=== PATIENT | female | born 1935 | race Caucasian/White ===

== ENCOUNTER 2017-03-18 01:58 | Inpatient (IN) | payer MEDICARE, OTHER ==
[~2017-03-18] VITALS: Ht 162.6 cm; Wt 56.2 kg
[~2017-03-18 01:58] MED LIST: ACET160T6 PO; ANAS1TAB PO; CLON0.1T PO; DIGO50SO2 PO; LETR2.5T PO; LEVO125T PO; LORA-258 PO; LOSA1TAB9 PO; LOSA50TA3 PO; MEPE50TA2 PO; METO25TA20 PO; PANT20TA2 PO; PRED10TA PO; TRAM50TA2 PO; TRAM50TA92 PO; WARF1TAB47 PO; ZOLP5TAB2 PO
--- NOTE | 2017-03-18 02:00 | NUR ---
PT BIB [facility] TO ER BED 5, PT C/O ABDOMINAL PAIN AND BLACK STOOLS X 1 DAY. PT PLACED IN GOWN AND VS/DENTAL ASSISTANT INSTRUCTOR. MD CURRIE AT BEDSIDE. TECH AT BEDSIDE FOR EKG. PT VSS/RESP EVEN UNLABORED/NAD NOTED/SKIN WARM AND DRY/AOX4. PT IS C/O NAUSEA, DENIES VOMITING.
--- NOTE | 2017-03-18 02:20 | NUR ---
18G IV TO L AC USING ASEPTIC TECH, BLOOD SAMPLE HANDED OVER TO LAB AT BEDSIDE. IV FLUSHES EASILY WITH NS.
[2017-03-18] MEDS ORDERED: ONDANSETRON HCL/PF 4 MG/2 ML VIAL ONE (02:27)
[2017-03-18] MEDS ORDERED: ONDANSETRON HCL/PF 4 MG/2 ML VIAL IV ONE (02:30)
[2017-03-18] MEDS ORDERED: IV NS 0.9% 1,000 ML BAG IV ONE ×2 (02:30→03:30)
--- NOTE | 2017-03-18 02:30 | NUR ---
16 FR F/C IN PLACE USING ASSISTANT ACCOUNT EXECUTIVE, URINE SPECIMEN OBTAINED AND SENT TO LAB. PT TOLERATED PROCEDURE WELL.
[2017-03-18 02:34] LABS: BASOPHILS % (AUTO) 0.2 % (0.0-2.0); HEMATOCRIT 31 % (33-45); HEMOGLOBIN 9.9 g/dL (11.5-14.8); LYMPHOCYTES # (AUTO) 2.1 /CMM (0.8-4.8); LYMPHOCYTES % (AUTO) 16.8 % (20.0-44.0); MEAN CORPUSCULAR HEMOGLOBIN 30 PG (26.0-33.0); MEAN CORPUSCULAR HGB CONC 32 g/dl (31.0-36.0); MEAN CORPUSCULAR VOLUME 93 fL (82-100); MONOCYTES # (AUTO) 0.7 /CMM (0.1-1.30); MONOCYTES % (AUTO) 5.1 % (2.0-12.0); NEUTROPHILS # (AUTO) 9.9 /CMM (1.8-8.9); NEUTROPHILS % (AUTO) 77.9 % (43.0-81.0); PLATELET COUNT (AUTO) 195 /CMM (150-450); RDW COEFFICIENT OF VARIATION 15.6 (11.5-15.0); RED BLOOD CELL COUNT(AUTO) 3.29 MIL/uL (4.0-5.2); WHITE BLOOD COUNT (AUTO) 12.8 K/uL (4.3-11.0)
--- NOTE | 2017-03-18 02:40 | NUR ---
XRAY AT BEDSIDE.
[2017-03-18 02:44] LABS: INR 1.08 (0.87-1.13); PROTHROMBIN TIME 11.2 SECS (9.5-12.7)
[2017-03-18 02:44] LABS: APPEARANCE,URINE CLEAR (CLEAR); BILIRUBIN,URINE NEGATIVE (NEGATIVE); BLOOD, URINE NEGATIVE Ery/uL (NEGATIVE); COLOR,URINE YELLOW (YELLOW); KETONES,URINE NEGATIVE (NEGATIVE); LEUKOCYTE ESTERASE ,URINE NEGATIVE (NEGATIVE); NITRITE, URINE NEGATIVE (NEGATIVE); PROTEIN,URINE NEGATIVE (NEGATIVE); UGLUCOSE NEGATIVE (NEGATIVE); UROBILINOGEN,URINE 0.2 EU/dL (0.2)
[2017-03-18 02:47] LABS: ALANINE AMINOTRANSFERASE 31 U/L (12-78); ALBUMIN 3.4 g/dL (3.4-5.0); ALKALINE PHOSPHATASE 36 U/L (46-116); ASPARTATE AMINOTRANSFERASE 19 U/L (15-37); BILIRUBIN,DIRECT 0.1 mg/dL (0.0-0.2); BILIRUBIN,TOTAL 0.5 mg/dL (0.2-1.0); CALCIUM, SERUM 9.6 mg/dL (8.5-10.1); CARBON DIOXIDE 23 mmol/L (21-32); CHLORIDE 104 mmol/L (98-107); CREATININE 2.3 mg/dL (0.6-1.3); GLUCOSE 157 mg/dL (74-106); SODIUM SERUM 143 mmol/L (136-145); TOTAL PROTEIN, SERUM 6.5 g/dL (6.4-8.2)
[2017-03-18 02:49] LABS: TROPONIN I 0.033 ng/mL (0.00-0.056)
[2017-03-18 02:51] LABS: UREA NITROGEN, BLOOD 104 mg/dL (7-18)
--- NOTE | 2017-03-18 03:04 | NUR ---
PT TO CT VIA STRETCHER, VSS.
[2017-03-18] MEDS ORDERED: IV NS 0.9% 250 ML IV ONE (03:06)
[2017-03-18] MEDS ORDERED: IOHEXOL-350 100 ML VIAL IV ONE (03:06)
--- NOTE | 2017-03-18 03:38 | NUR ---
PT BACK FROM CT.
[2017-03-18] MEDS ORDERED: ASPI-605 PO (03:53)
[2017-03-18] MEDS ORDERED: CYAN10009 PO (03:53)
[2017-03-18] MEDS ORDERED: ROSU10TA PO (03:53)
[2017-03-18] MEDS ORDERED: LEVO137T24 PO (03:53)
[2017-03-18] MEDS ORDERED: TORS20TA PO (03:53)
[2017-03-18] MEDS ORDERED: POTA-10 PO (03:53)
[2017-03-18] MEDS ORDERED: SILD50TA PO (03:53)
[2017-03-18] MEDS ORDERED: SEVE800T8 PO (03:53)
[2017-03-18] MEDS ORDERED: APIX2.5T PO (03:53)
[2017-03-18] MEDS ORDERED: PARI1CAP PO (03:53)
[2017-03-18] MEDS ORDERED: CARV6.25 PO (03:53)
[2017-03-18] MEDS ORDERED: VITA400C68 PO (03:53)
[2017-03-18] MEDS ORDERED: FLEC50TA3 PO (03:53)
[2017-03-18] MEDS ORDERED: CHOL100044 PO (03:53)
--- NOTE | 2017-03-18 03:57 | NUR ---
LAB AT BEDSIDE.
[2017-03-18] MEDS ORDERED: PANTOPRAZOLE 80 MG in IV NS 0.9% 500 ML IV ONE (04:00)
[2017-03-18] MEDS ORDERED: PANTOPRAZOLE 40 MG VIAL ONE (04:11)
--- NOTE | 2017-03-18 04:40 | NUR ---
PAGED [employer] FOR PANEL CALL
[2017-03-18] MEDS ORDERED: PIPERACILLIN /TAZOBACTAM 3.375 G VIAL IV ONE (05:18)
[2017-03-18] MEDS ORDERED: PIPERACILLIN /TAZOBACTAM 3.375 G in IV D5W 50 ML IV ONE (05:30)
--- NOTE | 2017-03-18 05:37 | NUR ---
PT BEING ADMIT TO TELE ROOM 322 BED 1.
--- NOTE | 2017-03-18 05:44 | NUR ---
REPORT GIVEN TO BEBETO BLEDSOE TELE FOR TASHIA.
[2017-03-18 05:50] VITALS: BP 146/67
--- NOTE | 2017-03-18 05:50 | NUR ---
TELE/RN NOTES RECEIVED PT. FROM ER VIA [facility]. PT. IS AWAKE, ALERT AND ORIENTED X4. BREATHING EVEN AND UNLABORED ON ROOM AIR. NO SOB, RESPIRATORY DISTRESS OR COMPLAINTS OF PAIN NOTED AT THIS TIME. ORIENTED PT. TO ROOM. PLACED EXTERNAL TEAM LEADER SURGERY ON PT. CURRENT RHYTHM = SINUS TACH WITH BBB HR 110. PT. WITH LEFT AC 18 GAUGE PERIPHERAL IV PRESENT, PATENT AND INTACT ADMINISTERING TO PT. PROTONIX @ 51.99 ML/HR. BED LOCKED AND IN LOWEST POSITION, SIDE RAILS UP X3, CALL LIGHT WITHIN REACH. AWAITING ADMITTING ORDERS. WILL CONTINUE TO MONITOR.
--- NOTE | 2017-03-18 06:03 | NUR ---
PT TRANSFER TO TELE BED 322 BED 1 VIA STRETCHER WITH RN, ACLS PROTOCOL.
[2017-03-18] MEDS ORDERED: PRAV20TA PO (06:25)
[2017-03-18] MEDS ORDERED: CALC500T71 PO (06:25)
[2017-03-18] MEDS ORDERED: DICL100G3 TP (06:25)
--- NOTE | 2017-03-18 06:50 | NUR ---
TELE/RN NOTES PT. IS LYING IN BED AWAKE, ALERT AND ORIENTED X4. BREATHING EVEN AND UNLABORED ON ROOM AIR. NO SOB, RESPIRATORY DISTRESS OR COMPLAINTS OF PAIN NOTED AT THIS TIME. ORIENTED PT. TO ROOM. PT. WITH LEFT AC 18 GAUGE PERIPHERAL IV PRESENT, PATENT AND INTACT ADMINISTERING TO PT. PROTONIX @ 51.99 ML/HR. ALL PT. NEEDS MET. BED LOCKED AND IN LOWEST POSITION, SIDE RAILS UP X3, CALL LIGHT WITHIN REACH. STILL AWAITING ADMITTING ORDERS. WILL ENDORSE TO DAYSHIFT NURSE FOR ADMISSION AND CONTINUITY OF CARE.
[2017-03-18 08:00] VITALS: BP 151/81
--- NOTE | 2017-03-18 08:16 | NUR ---
RECEIVED PATIENT IN BED, AWAKE, ALERT AND ORIENTED X 4, ABLE TO MAKE NEEDS KNOWN, NOTED WITH NO SOB, BREATHING EVEN AND UNLABORED, NO COMPLAINT OF PAIN AT THIS TIME, NOTED WITH NO SIGNS AND SYMPTOMS OF ACUTE DISTRESS. PATIENT WITH IV LINE ON LAC, G18, PATENT, INFUSING WELL WITH PROTONIX @ 561.99 Addendum: 03/18/17 at 0821 by BRIGETTE DAWKINS RN CORRECTION : PROTONIX @ 51.99 ML/HR. PLACED CALL LIGHT WITHIN REACH. WILL CONTINUE TO MONITOR. AWAITING FOR ORDERS.
[2017-03-18] MEDS ORDERED: IV D5/ 0.9% NACL 1,000 ML IV PRN (10:30)
[2017-03-18] MEDS ORDERED: Z GUARD REMEDY 2 OZ OINT TP PRN (11:30)
[2017-03-18] MEDS ORDERED: Medication Not On Formulary EA (Rosuvastatin Calcium (Crestor) 1 TAB) PO SCH (11:30)
--- NOTE | 2017-03-18 11:37 | NUR ---
RN MS NOTES PER DR. THAKUR, PT NPO BUT OK TO TAKE MEDS BY MOUTH.
[2017-03-18] MEDS: LORAZEPAM INJ 2 MG/ML VIAL IV PRN (11:46)
[2017-03-18] MEDS: CARVEDILOL 6.25 MG TABLET PO SCH ×2 (12:57→17:32)
[2017-03-18] MEDS: LEVOTHYROXINE SODIUM 75 MCG TABLET PO SCH (12:57)
[2017-03-18] MEDS: SEVELAMER CARBONATE 800 MG TABLET PO SCH ×2 (12:57→17:33)
--- NOTE | 2017-03-18 13:00 | NUR ---
RN MS NOTES PT REFUSING BLOOD DRAW, LAB UNABLE TO DRAW BLOOD, ORDER GIVEN FOR MIDLINE INSERTION, PT INFORMED AND AGREED WITH PLAN.
[2017-03-18] MEDS: ATORVASTATIN 10 MG TABLET PO SCH (13:12)
[2017-03-18] MEDS: IV D5/ 0.9% NACL 1,000 ML IV PRN (15:26)
[2017-03-18 16:00] VITALS: BP 131/61
[2017-03-18] MEDS: CHOLECALCIFEROL 1,000 UNIT TABLET (VIT D3) PO SCH (17:33)
[2017-03-18] MEDS: CALCIUM CARBONATE (1250) 500 MG TABLET PO SCH (17:33)
[2017-03-18] MEDS: SILDENAFIL CITRATE 20 MG TABLET PO SCH (17:33)
[2017-03-18 18:06] LABS: BASOPHILS % (AUTO) 0.5 % (0.0-2.0); EOSINOPHILS # (AUTO) 0.1 /CMM (0.0-0.7); EOSINOPHILS % (AUTO) 0.8 % (0.0-6.0); LYMPHOCYTES # (AUTO) 0.9 /CMM (0.8-4.8); LYMPHOCYTES % (AUTO) 12.8 % (20.0-44.0); MEAN CORPUSCULAR HEMOGLOBIN 30 PG (26.0-33.0); MEAN CORPUSCULAR HGB CONC 33 g/dl (31.0-36.0); MEAN CORPUSCULAR VOLUME 91 fL (82-100); MONOCYTES # (AUTO) 0.6 /CMM (0.1-1.30); MONOCYTES % (AUTO) 8.2 % (2.0-12.0); NEUTROPHILS # (AUTO) 5.7 /CMM (1.8-8.9); NEUTROPHILS % (AUTO) 77.7 % (43.0-81.0); PLATELET COUNT (AUTO) 148 /CMM (150-450); RDW COEFFICIENT OF VARIATION 16.6 (11.5-15.0); RED BLOOD CELL COUNT(AUTO) 2.14 MIL/uL (4.0-5.2); WHITE BLOOD COUNT (AUTO) 7.3 K/uL (4.3-11.0)
[2017-03-18 18:17] LABS: HEMATOCRIT 20 % (33-45)
[2017-03-18 18:20] LABS: HEMOGLOBIN 6.5 g/dL (11.5-14.8)
--- NOTE | 2017-03-18 18:30 | NUR ---
MICHELLE MS NOTES RECEIVED LATEST HGB RESULT FROM LAB, 6.5, DR. PERRIN INFORMED, ORDERED TO TRANSFUSE 2 UNITS PRBC, NOTED AND CARRIED OUT, PROCEDURE EXPLAINED TO PT, VERBALIZED UNDERSTANDING, CONSENT SIGNED.
--- NOTE | 2017-03-18 18:52 | NUR ---
RN CLOSING NOTES PATIENT UP IN BED, REMAINS TO BE NPO, ALERT AND ORIENTED X 4, ABLE TO VERBALIZE NEEDS, NO SOB, BREATHING EVEN AND UNLABORED, DENIES PAIN, NO COMPLAINT OF DIZZINESS, NO CHANGES IN MENTATION. SAFETY PRECAUTIONS IN PLACE, KEPT BED IN LOW POSITION AND LOCKED IN PLACE. CALL LIGHT PLACED WITHIN EASY REACH.
[2017-03-18 19:20] LABS: BAND % (MANUAL) 1 % (0.0-5.0); BASOPHILS % (MANUAL) 0 % (0.0-2.0); EOSINOPHILS % (MANUAL) 1 % (0-4); LYMPHOCYTES % (MANUAL) 13 % (16-48); MONOCYTES % (MANUAL) 5 % (0-11.0); NEUTROPHILS % (MANUAL) 80 (42-76)
--- NOTE | 2017-03-18 19:25 | NUR ---
MS/RN NOTES RECEIVED PT. LYING IN BED. AWAKE, ALERT AND ORIENTED X4. BREATHING EVEN AND UNLABORED ON ROOM AIR. NO SOB, RESPIRATORY DISTRESS OR COMPLAINTS OF PAIN NOTED AT THIS TIME. PT. WITH LEFT AC 18 GAUGE IV SALINE LOCK PRESENT, PATENT AND INTACT. PT. WITH RIGHT UPPER ARM MIDLINE PRESENT, PATENT AND INTACT ADMINISTERING TO PT. PROTONIX @ 51.99ML/HR AND NS @ 75 ML/HR. PT. REMAINS NPO EXCEPT MEDICATIONS. PER DAYSHIFT NURSE PT. HAD 3 BM'S TODAY AND CONTINUES TO HAVE BLACK TARRY STOOLS. PT. WITH CAMACHO CATHETER PRESENT, PATENT AND INTACT DRAINING CLEAR YELLOW URINE. PER DAYSHIFT NURSE PT. HAS BLOOD TRANSFUSION ORDERED, CONSENT SIGNED AND PLACED IN CHART, AWAITING TYPE AND SCREEN RESULTS FROM LAB. WILL ADMINISTER TO PT. BLOOD TRANSFUSION ORDERED ONCE BLOOD IS AVAILABLE. BED LOCKED AND IN LOWEST POSITION, SIDE RAILS UP X3, BED ALARM ON, CALL LIGHT WITHIN REACH, WILL CONTINUE TO MONITOR.
[2017-03-18 19:32] LABS: TROPONIN I 0.061 ng/mL (0.00-0.056)
[2017-03-18 19:43] LABS: THYROID STIMULATING HORMONE 0.998 uIU/mL (0.358-3.74)
[2017-03-18 20:00] VITALS: BP 143/62
--- NOTE | 2017-03-18 21:02 | NUR ---
MS/RN NOTES NOTIFIED EPIC EPIC PROFESSIONAL DR. LOVE PT. IS COMPLAINING OF PAIN 5-6/10 IN HER HEAD AND BACK. PT. HAS NO PAIN MEDICATION ORDERED. PER DR. OLVE NEW ORDER: MORPHINE 2MG IV Q4HR PRN PAIN. WILL CARRY OUR ORDERS. WILL CONTINUE TO MONITOR.
[2017-03-18 21:09] LABS: MAGNESIUM 2.2 mg/dL (1.8-2.4); PHOSPHORUS 2.9 mg/dL (2.5-4.9)
[2017-03-18] MEDS ORDERED: MORPHINE SULFATE INJ 10 MG/ML DISP.SYRIN IV PRN (21:30)
[2017-03-18] MEDS ORDERED: MORPHINE SULFATE INJ 4 MG/ML DISP.SYRIN IV PRN (21:30)
[2017-03-18] MEDS ORDERED: MORPHINE SULFATE INJ 2 MG/ML DISP.SYRIN IV PRN (21:30)
[2017-03-18] MEDS ORDERED: MORPHINE SULFATE INJ 10 MG/ML DISP.SYRIN ONE (21:31)
--- NOTE | 2017-03-18 21:43 | NUR ---
MS/RN NOTES PER CHARGE NURSE MORPHINE 2MG VIAL AND MORPHINE 4MG VIAL UNAVAILABLE ON THE UNIT. ORDER CHANGED TO MORPHINE 10 MG VIAL, ORDERED DOSE: 2MG, 8MG MORPHINE WAS WASTED. ADMINISTERED TO PT. MORPHINE 2MG IV PRN SEVERE PAIN. PT. VITAL SIGNS STABLE. WILL CONTINUE TO MONITOR.
[2017-03-18 22:50] VITALS: BP 107/43
--- NOTE | 2017-03-18 22:51 | NUR ---
MS/RN NOTES PT. VITAL SIGNS STABLE. 1 UNIT PRBC BLOOD TRANSFUSION STARTED. WILL CONTINUE TO MONITOR.
[2017-03-18 23:06] VITALS: BP 109/47
[2017-03-19] VITALS (9 sets, daily range): BP systolic 117–155; BP diastolic 57–88
--- NOTE | 2017-03-19 01:41 | NUR ---
MS/RN NOTES 1 UNIT PRBC'S TRANSFUSED. PT. VITAL SIGNS STABLE. PT. TOLERATED BLOOD TRANSFUSION WELL. NO ADVERSE REACTIONS NOTED. WILL CONTINUE TO MONITOR.
[2017-03-19 03:22] LABS: HEMOGLOBIN 7.8 g/dL (11.5-14.8)
--- NOTE | 2017-03-19 04:15 | NUR ---
MS/RN NOTES NOTIFIED EPIC WALLPAPER INSPECTOR AND SHIPPER DR. LOVE PT. RECEIVED 1 UNIT PRBC'S. POST TRANSFUSION H/H IS 7.8/24. PER DR. LOVE NEW ORDER: 1 UNIT PRBC. WILL CARRY OUT ORDER. WILL CONTINUE TO MONITOR.
--- NOTE | 2017-03-19 06:15 | NUR ---
MS/RN NOTES 1 UNIT PRBC BLOOD TRANSFUSION STARTED ORDERED. PT. VITAL SIGNS STABLE. WILL CONTINUE TO MONITOR.
--- NOTE | 2017-03-19 06:48 | NUR ---
MS/RN NOTES PT. IS LYING IN BED. AWAKE, ALERT AND ORIENTED X4. BREATHING EVEN AND UNLABORED ON ROOM AIR. NO SOB, RESPIRATORY DISTRESS OR COMPLAINTS OF PAIN NOTED AT THIS TIME. PT. WITH LEFT AC 18 GAUGE IV SALINE LOCK PRESENT, PATENT AND INTACT. PT. WITH RIGHT UPPER ARM MIDLINE PRESENT, PATENT AND INTACT ADMINISTERING TO PT. 1 UNIT PRBC BLOOD TRANSFUSION. PT. REMAINS NPO EXCEPT MEDICATIONS. PT. WITH CAMACHO CATHETER PRESENT, PATENT AND INTACT. EMPTIED 1000 ML CLEAR YELLOW URINE. ALL PT. NEEDS MET. PT. ENCOURAGED AND ASSISTED TO TURN AND REPOSITION Q2H AND NEEDED. BED LOCKED AND IN LOWEST POSITION, SIDE RAILS UP X3, BED ALARM ON, CALL LIGHT WITHIN REACH, WILL ENDORSE TO DAYSHIFT NURSE FOR CONTINUITY OF CARE.
--- NOTE | 2017-03-19 07:30 | NUR ---
MS RN NOTES RECEIVED PATIENT IN BED, AWAKE. A/O X3, APPEARS ANXIOUS. ON ROOM AIR, TOLERATING WELL, NO SOB. BLOOD TRANSFUSION 2ND UNIT PRBC CURRENTLY INFUSING WITH NO EVIDENCE OF ADVERSE SIDE EFFECT. PATIENT IS ON NPO EXCEPT MEDS ORDERED. CALL LIGHT WITHIN REACH. WILL CONT TO MONITOR.
--- NOTE | 2017-03-19 07:46 | NUR ---
BLOOD TRANSFUSION IN PROGRESS, PATIENT APPEARS COMFORTABLE IN BED, DENIES ANY DISCOMFORT. AFEBRILE, ON ROOM AIR, NO SOB, DENIES CHEST PAIN.
[2017-03-19] MEDS: SILDENAFIL CITRATE 20 MG TABLET PO SCH ×2 (08:49→17:22)
[2017-03-19] MEDS: CARVEDILOL 6.25 MG TABLET PO SCH ×2 (08:50→17:19)
[2017-03-19] MEDS: LEVOTHYROXINE SODIUM 75 MCG TABLET PO SCH (08:50)
[2017-03-19] MEDS: ATORVASTATIN 10 MG TABLET PO SCH (08:51)
[2017-03-19] MEDS ORDERED: HYDROMORPHONE INJ 2 MG/ML DISP.SYRIN IV PRN (09:00)
--- NOTE | 2017-03-19 09:12 | NUR ---
POST BLOOD TRANSFUSION PRBC 2ND UNIT, WITH NO ADVERSE SIDE EFFECT, VS REMAINS STABLE. PATIENT DENIES CHEST PAIN OR ANY DISCOMFORT. WILL CONT TO MONITOR.
--- NOTE | 2017-03-19 09:59 | NUR ---
NO AM LABS TODAY, DR. MCDANIEL ORDERED CHEM 12 AND CBC, NOTED AND ACKNOWLEDGED.
[2017-03-19] MEDS: FLECAINIDE ACETATE (100 MG) 100 MG TABLET PO SCH ×2 (10:12→21:32)
[2017-03-19 11:03] LABS: BASOPHILS # (AUTO) 0.1 /CMM (0.0-0.2); EOSINOPHILS # (AUTO) 0.1 /CMM (0.0-0.7); EOSINOPHILS % (AUTO) 1.6 % (0.0-6.0); HEMATOCRIT 29 % (33-45); HEMOGLOBIN 9.4 g/dL (11.5-14.8); LYMPHOCYTES # (AUTO) 0.7 /CMM (0.8-4.8); LYMPHOCYTES % (AUTO) 10.6 % (20.0-44.0); MEAN CORPUSCULAR HEMOGLOBIN 30 PG (26.0-33.0); MEAN CORPUSCULAR HGB CONC 33 g/dl (31.0-36.0); MEAN CORPUSCULAR VOLUME 92 fL (82-100); MONOCYTES # (AUTO) 0.4 /CMM (0.1-1.30); MONOCYTES % (AUTO) 5.9 % (2.0-12.0); NEUTROPHILS # (AUTO) 5.1 /CMM (1.8-8.9); NEUTROPHILS % (AUTO) 80.9 % (43.0-81.0); PLATELET COUNT (AUTO) 121 /CMM (150-450); RDW COEFFICIENT OF VARIATION 15.1 (11.5-15.0); RED BLOOD CELL COUNT(AUTO) 3.14 MIL/uL (4.0-5.2); WHITE BLOOD COUNT (AUTO) 6.4 K/uL (4.3-11.0)
[2017-03-19 11:16] LABS: ALANINE AMINOTRANSFERASE 23 U/L (12-78); ALBUMIN 2.9 g/dL (3.4-5.0); ALKALINE PHOSPHATASE 25 U/L (46-116); ASPARTATE AMINOTRANSFERASE 20 U/L (15-37); BILIRUBIN,TOTAL 0.5 mg/dL (0.2-1.0); CARBON DIOXIDE 25 mmol/L (21-32); CHLORIDE 121 mmol/L (98-107); CREATININE 1.7 mg/dL (0.6-1.3); GLUCOSE 122 mg/dL (74-106); MAGNESIUM 2.5 mg/dL (1.8-2.4); PHOSPHORUS 2.7 mg/dL (2.5-4.9); POTASSIUM 3.4 mmol/L (3.5-5.1); SODIUM SERUM 155 mmol/L (136-145); TOTAL PROTEIN, SERUM 5.2 g/dL (6.4-8.2); UREA NITROGEN, BLOOD 53 mg/dL (7-18)
[2017-03-19 11:23] LABS: IRON, SERUM 87 ug/dl (50-175); TOTAL IRON BINDING CAPACITY 288 ug/dl (250-450)
[2017-03-19 11:27] LABS: FERRITIN 97 ng/mL (8-388); THYROID STIMULATING HORMONE 1.602 uIU/mL (0.358-3.74)
--- NOTE | 2017-03-19 11:48 | NUR ---
PATIENT CONSENTED THE PROCEDURE-EGD, MANUEL, SON WAS AWARE. PATIENT IS TAKEN TO OR FOR EGD BY DR. LAWTON.
--- NOTE | 2017-03-19 13:30 | NUR ---
PATIENT IS BACK FROM OR, POST EGD PROCEDURE. PATIENT RECEIVING IVF NS AT 100ML/HR, 1L BAG HANG FROM OR. WILL START CLEAR LIQUIDS ORDERED PER DR. HA.
[2017-03-19] MEDS: SEVELAMER CARBONATE 0.8 GM POWD.PACK PO SCH ×2 (13:52→17:19)
[2017-03-19] MEDS: LORAZEPAM INJ 2 MG/ML VIAL IV PRN ×2 (13:54→20:04)
--- NOTE | 2017-03-19 13:57 | NUR ---
PATIENT APPEARS ANXIOUS, DENIES CHEST PAIN. ON ROOM AIR, TOLERATING WELL, NO SOB. SATING 98%. GIVEN ATIVAN 1MG IVP PRN, WILL REASSESS. MANUEL, SON AT THE BEDSIDE.
--- NOTE | 2017-03-19 15:04 | NUR ---
LOW POTASSIUM LEVEL 3.4 AND ELEVATED SODIUM 155. NOTIFIED DR. MARYCHUY VO, ORDERED KCL 40MEQ IV NOTED AND ACKNOWLEDGED.
[2017-03-19] MEDS ORDERED: POTASSIUM CL. PREMIX PERIPHER. 50 ML IV SCH (15:30)
[2017-03-19] MEDS: IV D5/ 0.9% NACL 1,000 ML IV PRN (15:40)
[2017-03-19] MEDS: Potassium Chloride 10 MEQ in IV D5W 50 ML IV SCH ×4 (16:15→19:17)
[2017-03-19] MEDS: CALCIUM CARBONATE (1250) 500 MG TABLET PO SCH (17:19)
[2017-03-19] MEDS: CHOLECALCIFEROL 1,000 UNIT TABLET (VIT D3) PO SCH (17:20)
--- NOTE | 2017-03-19 18:00 | NUR ---
MS RN CLOSING NOTES PATIENT SITTING UP IN BED, EATING DINNER. ON CLEAR LIQUIDS DIET, TOLERATING WELL, NO EPISODE OF VOMITING, NO C/O NAUSEA. NICK MIDLINE PATENT AND INTACT, REPLACING POTASSIUM IV AT THIS TIME. CAMACHO CATH INTACT, DRAINING TO GRAVITY, NO C/O ANY DISCOMFORT. PATIENT HAD BOWEL MOVEMENT TODAY, MOD AMT GREENISH AND BLACK COLOR. POST EGD TODAY BY DR. HA. CONT HOSP. CALL LIGHT WITHIN REACH. WILL ENDORSE TO INSIDE HORTICULTURAL SPECIALTY GROWER RN FOR CONTINUITY OF CARE.
--- NOTE | 2017-03-19 19:35 | NUR ---
RN OPENING NOTES RECEIVED REPORT FROM ONEIL, PT RESTING IN BED. NO APPARENT S/S OF PAIN OR DISTRESS. NO COMPLAINTS OF SOB. CAMACHO CATHETER INTACT AND DRAINING WELL. R UA MIDLINE RUNNING D5 1/2NS @75ML/HR. PT TOLERATING IVF WELL. PATIENT IS ON NPO EXCEPT MEDS ORDERED. SAFETY PRECAUTIONS IN PLACE. BED IN LOW, LOCKED POSITION, 2XSIDERAILS UP AND CALL LIGHT WITHIN REACH. WILL CONTINUE TO MONITOR PT. Addendum: 03/20/17 at 0612 by JEOVANY CHOU RN PT IS ON CLEAR LIQUID DIET.
--- NOTE | 2017-03-19 20:04 | NUR ---
PT REQUESTED PRN ATIVAN 1MG FOR SLEEP. WILL ADMINISTER AND CONTINUE TO MONITOR.
[2017-03-20 06:34] LABS: BASOPHILS # (AUTO) 0.1 /CMM (0.0-0.2); BASOPHILS % (AUTO) 0.5 % (0.0-2.0); EOSINOPHILS # (AUTO) 0.3 /CMM (0.0-0.7); EOSINOPHILS % (AUTO) 2.4 % (0.0-6.0); HEMATOCRIT 30 % (33-45); HEMOGLOBIN 9.8 g/dL (11.5-14.8); LYMPHOCYTES # (AUTO) 0.8 /CMM (0.8-4.8); LYMPHOCYTES % (AUTO) 7.1 % (20.0-44.0); MEAN CORPUSCULAR HEMOGLOBIN 31 PG (26.0-33.0); MEAN CORPUSCULAR HGB CONC 33 g/dl (31.0-36.0); MEAN CORPUSCULAR VOLUME 93 fL (82-100); MONOCYTES # (AUTO) 0.8 /CMM (0.1-1.30); MONOCYTES % (AUTO) 6.6 % (2.0-12.0); NEUTROPHILS # (AUTO) 9.8 /CMM (1.8-8.9); NEUTROPHILS % (AUTO) 83.4 % (43.0-81.0); PLATELET COUNT (AUTO) 116 /CMM (150-450); RDW COEFFICIENT OF VARIATION 15.4 (11.5-15.0); RED BLOOD CELL COUNT(AUTO) 3.19 MIL/uL (4.0-5.2); WHITE BLOOD COUNT (AUTO) 11.8 K/uL (4.3-11.0)
[2017-03-20] MEDS: LEVOTHYROXINE SODIUM 75 MCG TABLET PO SCH (06:53)
[2017-03-20 06:57] LABS: CALCIUM, SERUM 7.3 mg/dL (8.5-10.1); CARBON DIOXIDE 23 mmol/L (21-32); CHLORIDE 117 mmol/L (98-107); CREATININE 1.5 mg/dL (0.6-1.3); GLUCOSE 121 mg/dL (74-106); MAGNESIUM 2.1 mg/dL (1.8-2.4); PHOSPHORUS 1.8 mg/dL (2.5-4.9); POTASSIUM 3.9 mmol/L (3.5-5.1); SODIUM SERUM 147 mmol/L (136-145); UREA NITROGEN, BLOOD 30 mg/dL (7-18)
--- NOTE | 2017-03-20 07:17 | NUR ---
RN CLOSING NOTES PT RESTING IN BED. NO APPARENT S/S OF PAIN OR DISTRESS. NO COMPLAINTS OF SOB. CAMACHO CATHETER INTACT AND DRAINING WELL. CAMACHO OUTPUT: 1200ML. RIGHT UA MIDLINE RUNNING D5 1/2NS @75ML/HR. PT TOLERATING IVF WELL. PATIENT IS ON CLEAR LIQUID DIET. SAFETY PRECAUTIONS IN PLACE. BED IN LOW, LOCKED POSITION, 2XSIDERAILS UP AND CALL LIGHT WITHIN REACH.
--- NOTE | 2017-03-20 07:30 | NUR ---
MS RN NOTES RECEIVED PATIENT IN BED, AWAKE. A/O X3, ON OXYGEN AT 2L NC, NO SOB. NICK MIDLINE PATENT AND INTACT, IV D5 NS INFUSING AT 75ML/HR. APPEARS CALM AND RELAX AT THIS TIME. CALL LIGHT WITHIN REACH. WILL CONT TO MONITOR.
[2017-03-20 08:00] VITALS: BP 130/52
[2017-03-20] MEDS: SEVELAMER CARBONATE 0.8 GM POWD.PACK PO SCH ×3 (09:12→17:17)
[2017-03-20] MEDS: CARVEDILOL 6.25 MG TABLET PO SCH ×2 (09:13→17:18)
[2017-03-20] MEDS: SILDENAFIL CITRATE 20 MG TABLET PO SCH ×2 (09:13→17:18)
[2017-03-20] MEDS: FLECAINIDE ACETATE (100 MG) 100 MG TABLET PO SCH ×2 (09:13→21:58)
[2017-03-20] MEDS: ATORVASTATIN 10 MG TABLET PO SCH (09:13)
[2017-03-20] MEDS: LORAZEPAM INJ 2 MG/ML VIAL IV PRN (09:17)
[2017-03-20] MEDS: LIDOCAINE VISCOUS 2% UD 15 ML UDC MM SCH ×2 (10:19→17:22)
[2017-03-20] MEDS: SUCRALFATE 1 G/10 ML UDC GT SCH ×4 (10:20→21:58)
--- NOTE | 2017-03-20 11:56 | NUR ---
ELEVATED WBC 11.8 PHOS 1.8. PATIENT IS SEEN BY DR. MARYCHUY VO. PATIENT WILL BE DISCHARGED TO [facility] FOR ELLE LATHAM INFORMED. CHARGE NURSE MADE AWARE.
[2017-03-20] MEDS ORDERED: K PHOS NEUTRAL 250 MG TABLET PO ONE (12:00)
[2017-03-20] MEDS ORDERED: SUCR1ORA6 GT (12:06)
[2017-03-20] MEDS: IV D5/ 0.9% NACL 1,000 ML IV PRN (12:10)
--- NOTE | 2017-03-20 13:08 | NUR ---
CAMACHO CATH REMOVED ORDERED, OBTAINED 350ML URINE CLEAR AND YELLOW. WILL MONITOR FOR URINARYRETENTION.
[2017-03-20 16:00] VITALS: BP 142/77
[2017-03-20] MEDS: CHOLECALCIFEROL 1,000 UNIT TABLET (VIT D3) PO SCH (17:17)
[2017-03-20] MEDS: CALCIUM CARBONATE (1250) 500 MG TABLET PO SCH (17:17)
--- NOTE | 2017-03-20 18:46 | NUR ---
MS RN CLOSING NOTES PATIENT IN BED, A/OX3. POST CAMACHO CATH DISCONTINUED TODAY WITH NO URINARY RETENTION, PATIENT VOIDED WITHOUT DIFFICULTY. NICK MIDLINE PATENT AND INTACT, IV D5 NS INFUSING AT 75ML/HR, TOLERATING WELL. NO EPISODE OF BLACK STOOL TODAY. PATIENT TO BE TRANSFERRED TO [facility] FOR WATCHMAN ORDERED, ELLE ALMEIDA IS AWARE. CALL LIGHT WITHIN REACH. WILL ENDORSE TO ADULT CAREGIVER RN FOR CONTINUITY OF CARE.
--- NOTE | 2017-03-20 19:20 | NUR ---
RN OPEN NOTES RECEIVED PATIENT AWAKE IN BED. A/O X3. NO SIGNS OF DISTRESS OR DISCOMFORT. BREATHING EVEN AND UNLABORED. ON 2LPM O2 VIA NC HAS NICK MIDLINE WITH D5NS INFUSING, PATENT AND INTACT, NO SIGNS OF REDNESS OR INFILTRATION. BED IN LOW LOCKED POSITION WITH SIDE RAILS X2. CALL LIGHT WITHIN REACH. WILL CONTINUE TO MONITOR.
[2017-03-20 20:00] VITALS: BP 130/69
[2017-03-21] MEDS: LORAZEPAM INJ 2 MG/ML VIAL IV PRN ×3 (00:35→21:51)
[2017-03-21] MEDS: LIDOCAINE VISCOUS 2% UD 15 ML UDC MM SCH ×3 (00:35→17:23)
--- NOTE | 2017-03-21 00:35 | NUR ---
RN NOTES ADMINISTERED ATIVAN 1MG ORDERED FOR INSOMNIA AT PATIENT REQUEST. VSS. WILL CONTINUE TO MONITOR.
[2017-03-21] MEDS: IV D5/ 0.9% NACL 1,000 ML IV PRN (02:50)
--- NOTE | 2017-03-21 07:30 | NUR ---
MS RN NOTES RECEIVED PATIENT IN BED, AWAKE. A/O X3, BREATHING EVEN AND NON LABORED. NICK MIDLINE PATENT AND INTACT, IV D5 NS INFUSING AT 75ML/HR. APPEARS COMFORTABLE IN BED, CALL LIGHT WITHIN REACH. BED LOW AND LOCKED, WILL CONT TO MONITOR.
--- NOTE | 2017-03-21 07:51 | NUR ---
RN CLOSING NOTES PATIENT AWAKE IN BED. A/O X3. NO SIGNS OF DISTRESS OR DISCOMFORT. BREATHING EVEN AND UNLABORED. ON 2LPM O2 VIA NC HAS NICK MIDLINE WITH D5NS INFUSING, PATENT AND INTACT, NO SIGNS OF REDNESS OR INFILTRATION. ALL NEEDS MET. NO SIGNIFICANT CHANGES THROUGH THE NIGHT. BED IN LOW LOCKED POSITION WITH SIDE RAILS X2. CALL LIGHT WITHIN REACH. ENDORSED TO AM SHIFT FOR TASHIA.
[2017-03-21 08:00] VITALS: BP_SYST 140; BP_DIAS 78; BP_DIAS 98
--- NOTE | 2017-03-21 08:34 | NUR ---
PATIENT IS SEEN BY DR. MCDANIEL/CARDIO, DC IVF ORDERED.
[2017-03-21] MEDS: LEVOTHYROXINE SODIUM 75 MCG TABLET PO SCH (08:47)
[2017-03-21] MEDS: SEVELAMER CARBONATE 0.8 GM POWD.PACK PO SCH (08:47)
[2017-03-21] MEDS: SUCRALFATE 1 G/10 ML UDC GT SCH ×4 (08:47→21:51)
[2017-03-21] MEDS: ATORVASTATIN 10 MG TABLET PO SCH (08:55)
[2017-03-21] MEDS: CARVEDILOL 6.25 MG TABLET PO SCH ×2 (08:56→17:24)
[2017-03-21] MEDS: SILDENAFIL CITRATE 20 MG TABLET PO SCH ×2 (08:56→17:29)
[2017-03-21] MEDS: FLECAINIDE ACETATE (100 MG) 100 MG TABLET PO SCH ×2 (08:57→21:53)
[2017-03-21] MEDS ORDERED: FUROSEMIDE 20 MG/2 ML VIAL IV ONE (10:30)
[2017-03-21] MEDS: POTASSIUM CHLORIDE 20 MEQ TAB.PRT.SR PO SCH ×2 (10:48→12:35)
--- NOTE | 2017-03-21 13:02 | NUR ---
PATIENT SITTING UP IN BED, APPEARS ANXIOUS. ON OXYGEN AT 2L NC. GIVEN ATIVAN 1MG IVP PRN, WILL REASSESS.
--- NOTE | 2017-03-21 13:11 | NUR ---
PATIENT IS CURRENTLY ON CLEAR LIQUIDS, TOLERATING WELL, NO EPISODE OF VOMITING, NO C/O NAUSEA. PATIENT HAD EGD 03/19/17 AND PER REPORT GASTRIC ULCER. PER DR. HA PATIENT CAN START SOFT FOOD, NOTED AND ACKNOWLEDGED.
[2017-03-21] MEDS: IPRATROPIUM NEB FS 0.5 MG/2.5 ML AMPUL.NEB NEB SCH ×2 (14:09→20:10)
[2017-03-21] MEDS: ALBUTEROL FS 2.5 MG/3 ML VIAL.NEB NEB SCH ×3 (14:09→23:06)
--- NOTE | 2017-03-21 14:52 | NUR ---
WOUND CARE CONSULT: PT SEEN FOR SKIN ASSESSMENT PER MD REQUEST. PT NOTED TO HAVE LYMPHEDEMA TO LEFT UPPER EXTREMITY. PT WEARING COMPRESSION SLEEVE ON LUE. DRY SCAB NOTED TO RT LOWER LEG FROM PREVIOUS BIOPSY PER PT REPORT. BLANCHABLE REDNESS TO SACRAL/BUTTOCKS AREA NOTED. PT IS INCONTINENT BUT ABLE TO ASSIST WITH TURNING AND REPOSITIONING IN BED. CURRENT ANGELIA SCORE IS 17. Z GUARD IN USE FOR PERIANAL AREA. NO STOOLING NOTED AT THIS TIME BUT URINARY INCONTINENCE NOTED. SKIN TO BE KEPT CLEAN AND DRY. OFFLOAD SACRUM AND HEELS. DISCUSSED SKIN PROTECTION WITH NURSING STAFF. WILL SEE PRN. IN AGREEMENT WITH PLAN OF CARE. Addendum: 03/21/17 at 1454 by TOOTIE JACKSON Amended: Links added. Addendum: 03/21/17 at 1455 by TOOTIE JACKSON PT ON ESTUARDO ISOFLEX LOW AIRLOSS BED.
[2017-03-21 16:00] VITALS: BP_SYST 119; BP_SYST 93; BP_DIAS 50; BP_DIAS 63
[2017-03-21] MEDS: methylPREDNISolone SOD SUCC 125 MG/2ML VIAL IV SCH (16:00)
[2017-03-21] MEDS: SOD FERRIC GLUC 125 MG in IV NS 0.9% 100 ML IV SCH (16:04)
[2017-03-21] MEDS: CHOLECALCIFEROL 1,000 UNIT TABLET (VIT D3) PO SCH (17:23)
[2017-03-21] MEDS: CALCIUM CARBONATE (1250) 500 MG TABLET PO SCH (17:29)
--- NOTE | 2017-03-21 18:28 | NUR ---
MS RN CLOSING NOTES PATIENT UP SITTING IN BED, ON SOFT DIET, TOLERATED WELL, NO EPISODE OF VOMITING, NO C/O NAUSEA. ON SCHED. BREATHING TREATMENT VIA NEB. CONT ON SUPPLEMENTAL OXYGEN AT 2L NC. BREATHING EVEN AND NON LABORED, NO SOB. NICK MIDLINE PATENT AND INTACT, FLUSHES WELL. KEPT CLEAN, DRY, AND COMFORTABLE IN BED, VOIDED WITHOUT DIFFICULTY. PLACE CALL LIGHT WITHIN REACH. PER MD ANTICIPATE DC HOME IN AM AND F/U AT [facility]. WILL ENDORSE TO CLAY GRINDER RN FOR TASHIA.
--- NOTE | 2017-03-21 19:40 | NUR ---
RN OPENING NOTES RECEIVED REPORT FROM GATITO RNONEIL. FOUND Pt AWAKE, RESTING IN BED, READING A NEWSPAPER. NO S/S OF ACUTE DISTRESS OR SOB NOTED. EQUAL CHEST RISE AND FALL. NO SIGNS OF DISCOMFORT OR PAIN. Pt IS A/OX3, VERBAL ABLE TO MAKE NEEDS KNOWN. IV ACCESS ON NICK MIDLINE, SL. SAFETY MEASURES IN PLACE. BED LOW, LOCKED, HOB ELEVATED, SIDE RAILS UP, CALL LIGHT AND BEDSIDE TABLE WITHIN REACH. WILL CONTINUE TO MONITOR Pt THROUGHOUT THE NIGHT FOR SAFETY.
[2017-03-21 20:00] VITALS: BP 141/73
[2017-03-22] MEDS: LIDOCAINE VISCOUS 2% UD 15 ML UDC MM SCH ×3 (01:22→18:08)
[2017-03-22] MEDS: IPRATROPIUM NEB FS 0.5 MG/2.5 ML AMPUL.NEB NEB SCH ×5 (02:11→23:48)
--- NOTE | 2017-03-22 06:45 | NUR ---
RN CLOSING NOTES NO SIGNIFICANT CHANGES IN Pt's CONDITION. Pt REMAINS STABLE AT THIS TIME. NO S/S OF ACUTE DISTRESS OR SOB NOTED DURING THE NIGHT. ALL NEEDS MET AND ATTENDED TO. SAFETY MEASURES IN PLACE. WILL ENDORSE TO DAYSHIFT RN FOR Pt's TASHIA.
--- NOTE | 2017-03-22 07:35 | NUR ---
MS RN OPENING NOTES RECEIVED PATIENT IN STABLE CONDITION. PATIENT IS RESTING IN BED. CALL LIGHT IS WITHIN REACH. BED IS LOCKED AND LOWERED. BEDSIDE RAILS ARE UP X2. WILL CONTINUE TO MONITOR.
[2017-03-22 08:00] VITALS: BP 158/73
[2017-03-22] MEDS: methylPREDNISolone SOD SUCC 125 MG/2ML VIAL IV SCH (08:14)
[2017-03-22] MEDS: ATORVASTATIN 10 MG TABLET PO SCH (08:14)
[2017-03-22] MEDS ORDERED: FUROSEMIDE 40 MG/4 ML VIAL IV SCH (08:15)
[2017-03-22] MEDS: SILDENAFIL CITRATE 20 MG TABLET PO SCH ×2 (08:19→17:20)
[2017-03-22] MEDS: LEVOTHYROXINE SODIUM 75 MCG TABLET PO SCH (08:19)
[2017-03-22] MEDS: FLECAINIDE ACETATE (100 MG) 100 MG TABLET PO SCH ×2 (08:20→21:22)
[2017-03-22] MEDS: SUCRALFATE 1 G/10 ML UDC GT SCH ×4 (08:20→21:22)
[2017-03-22] MEDS: CARVEDILOL 6.25 MG TABLET PO SCH ×2 (08:23→17:22)
[2017-03-22] MEDS ORDERED: POTASSIUM CHLORIDE 20 MEQ TAB.PRT.SR PO SCH (08:30)
[2017-03-22] MEDS: LORAZEPAM INJ 2 MG/ML VIAL IV PRN ×2 (09:08→23:19)
[2017-03-22] MEDS: ALBUTEROL FS 2.5 MG/3 ML VIAL.NEB NEB SCH ×3 (09:25→23:47)
[2017-03-22 10:18] LABS: EOSINOPHILS % (AUTO) 0.1 % (0.0-6.0); HEMATOCRIT 31 % (33-45); HEMOGLOBIN 10.1 g/dL (11.5-14.8); LYMPHOCYTES # (AUTO) 0.7 /CMM (0.8-4.8); MEAN CORPUSCULAR HEMOGLOBIN 31 PG (26.0-33.0); MEAN CORPUSCULAR HGB CONC 33 g/dl (31.0-36.0); MEAN CORPUSCULAR VOLUME 93 fL (82-100); MONOCYTES # (AUTO) 0.9 /CMM (0.1-1.30); MONOCYTES % (AUTO) 9.1 % (2.0-12.0); NEUTROPHILS # (AUTO) 8.2 /CMM (1.8-8.9); NEUTROPHILS % (AUTO) 83.8 % (43.0-81.0); PLATELET COUNT (AUTO) 142 /CMM (150-450); RED BLOOD CELL COUNT(AUTO) 3.32 MIL/uL (4.0-5.2); WHITE BLOOD COUNT (AUTO) 9.7 K/uL (4.3-11.0)
[2017-03-22 10:30] LABS: CALCIUM, SERUM 7.3 mg/dL (8.5-10.1); CARBON DIOXIDE 25 mmol/L (21-32); CHLORIDE 111 mmol/L (98-107); CREATININE 1.4 mg/dL (0.6-1.3); GLUCOSE 146 mg/dL (74-106); SODIUM SERUM 144 mmol/L (136-145); UREA NITROGEN, BLOOD 21 mg/dL (7-18)
[2017-03-22 10:36] LABS: ALANINE AMINOTRANSFERASE 19 U/L (12-78); ALBUMIN 2.6 g/dL (3.4-5.0); ALKALINE PHOSPHATASE 41 U/L (46-116); ASPARTATE AMINOTRANSFERASE 18 U/L (15-37); BILIRUBIN,TOTAL 0.3 mg/dL (0.2-1.0); MAGNESIUM 1.9 mg/dL (1.8-2.4); PHOSPHORUS 1.6 mg/dL (2.5-4.9); TOTAL PROTEIN, SERUM 5.6 g/dL (6.4-8.2)
[2017-03-22] MEDS ORDERED: NEUTRA PHOS 1 POWD.PACKET PO ONE (12:30)
[2017-03-22] MEDS: SOD FERRIC GLUC 125 MG in IV NS 0.9% 100 ML IV SCH (15:31)
[2017-03-22 16:00] VITALS: BP 122/70
[2017-03-22] MEDS: CALCIUM CARBONATE (1250) 500 MG TABLET PO SCH (18:08)
[2017-03-22] MEDS: CHOLECALCIFEROL 1,000 UNIT TABLET (VIT D3) PO SCH (18:08)
--- NOTE | 2017-03-22 18:40 | NUR ---
MS RN CLOSING NOTES PATIENT IS RESTING IN BED IN NO APPARENT DISTRESS. BEDSIDE RAILS ARE UP X2. BED IS LOCKED AND LOWERED. WILL ENDORSE CARE TO GEOLOGICAL MANAGER NURSE FOR TASHIA.
--- NOTE | 2017-03-22 19:40 | NUR ---
MS MARTINEZ INITIAL NOTES Addendum: 03/23/17 at 0427 by SHARRI GIBSON PT IS AWAKE IN BED, A/O X3. ABLE TO MAKE NEEDS KNOW. BREATHING EVENLY AND UNLABORED ON NC 2L. NO SIGNS OF SOB OR DISTRESS. IV ACCESS IS INTACT AND PATENT. PT STATES SHE WOULD LIKE TO AMBULATE MORE. BED IS IN LOVE AND LOCKED POSITION, CALL LIGHT WITHIN REACH. WILL CONTINUE TO MONITOR PT
[2017-03-22 20:00] VITALS: BP 166/88
[2017-03-23] MEDS: LIDOCAINE VISCOUS 2% UD 15 ML UDC MM SCH ×3 (00:42→16:38)
--- NOTE | 2017-03-23 06:15 | NUR ---
MS RN NOTES PT IS BECOMING ANXIOUS AND CRYING. TRIED BREATHING EXERCISES TO CALM PT. WILL ADMINISTER ATIVAN.
--- NOTE | 2017-03-23 06:29 | NUR ---
MS RN CLOSING NOTES PT IS IN BED RESTING, NO ACUTE CHANGES THROUGHOUT THE SHIFT. ALL NEEDS WERE ANTICIPATED AND MET. PT WANTS AND IS ABLE TO AMBULATE WITH ASSIST. BED IS IN LOW AND LOCKED POSITION. CALL LIGHT WITHIN REACH. WILL ENDORSE TO DAY SHIFT
[2017-03-23] MEDS: SUCRALFATE 1 G/10 ML UDC GT SCH ×4 (06:40→22:11)
[2017-03-23] MEDS: LORAZEPAM INJ 2 MG/ML VIAL IV PRN ×2 (06:40→14:32)
[2017-03-23] MEDS: LEVOTHYROXINE SODIUM 75 MCG TABLET PO SCH (06:40)
[2017-03-23] MEDS: FUROSEMIDE 40 MG/4 ML VIAL IV SCH ×3 (07:30→16:02)
[2017-03-23 08:00] VITALS: BP 153/82
--- NOTE | 2017-03-23 08:00 | NUR ---
RN OPENING NOTES: - patient awake, with continous O2 at 3 l/min, had seen Dr. Dean, but still was asking to speak to MD had informed MD prior to going out of unit .
[2017-03-23] MEDS: IPRATROPIUM NEB FS 0.5 MG/2.5 ML AMPUL.NEB NEB SCH ×3 (08:11→19:32)
[2017-03-23] MEDS: ALBUTEROL FS 2.5 MG/3 ML VIAL.NEB NEB SCH ×2 (08:11→15:17)
[2017-03-23 08:17] LABS: CALCIUM, SERUM 7.5 mg/dL (8.5-10.1); CARBON DIOXIDE 22 mmol/L (21-32); CHLORIDE 112 mmol/L (98-107); CREATININE 1.3 mg/dL (0.6-1.3); GLUCOSE 86 mg/dL (74-106); MAGNESIUM 2.1 mg/dL (1.8-2.4); PHOSPHORUS 1.4 mg/dL (2.5-4.9); POTASSIUM 4.7 mmol/L (3.5-5.1); SODIUM SERUM 146 mmol/L (136-145); UREA NITROGEN, BLOOD 24 mg/dL (7-18)
[2017-03-23] MEDS: FLECAINIDE ACETATE (100 MG) 100 MG TABLET PO SCH ×2 (08:28→21:49)
[2017-03-23] MEDS: ATORVASTATIN 10 MG TABLET PO SCH (08:29)
[2017-03-23] MEDS: SILDENAFIL CITRATE 20 MG TABLET PO SCH ×2 (08:29→16:38)
[2017-03-23] MEDS: CARVEDILOL 6.25 MG TABLET PO SCH ×2 (08:30→16:38)
--- NOTE | 2017-03-23 09:09 | NUR ---
RT REMOVED O2 PER MD ORDER TO CHECK SATS ON ROOM AIR. PT SPO2 97% ON ROOM AIR. PT REFUSES TO REMOVE O2 COMPLETELY. EXPLAINED TO PT THAT SHE DID NOT NEED O2 AT THIS TIME, BUT PT REFUSES TO REMOVE O2. RN AWARE. Addendum: 03/23/17 at 0920 by LAUREANO BYRNE RT LEFT PT ON 0.5/L OF O2.
[2017-03-23] MEDS ORDERED: Sodium Phosphate 15 MMOL in IV D5W 250 ML IV ONE (10:30)
[2017-03-23 11:05] LABS: BASOPHILS # (AUTO) 0.1 /CMM (0.0-0.2); BASOPHILS % (AUTO) 0.5 % (0.0-2.0); EOSINOPHILS # (AUTO) 0.2 /CMM (0.0-0.7); EOSINOPHILS % (AUTO) 1.4 % (0.0-6.0); HEMATOCRIT 35 % (33-45); HEMOGLOBIN 11.2 g/dL (11.5-14.8); LYMPHOCYTES # (AUTO) 1.4 /CMM (0.8-4.8); LYMPHOCYTES % (AUTO) 10.4 % (20.0-44.0); MEAN CORPUSCULAR HEMOGLOBIN 31 PG (26.0-33.0); MEAN CORPUSCULAR HGB CONC 32 g/dl (31.0-36.0); MEAN CORPUSCULAR VOLUME 95 fL (82-100); MONOCYTES # (AUTO) 1.5 /CMM (0.1-1.30); MONOCYTES % (AUTO) 10.7 % (2.0-12.0); NEUTROPHILS # (AUTO) 10.5 /CMM (1.8-8.9); PLATELET COUNT (AUTO) 153 /CMM (150-450); RDW COEFFICIENT OF VARIATION 16.1 (11.5-15.0); RED BLOOD CELL COUNT(AUTO) 3.65 MIL/uL (4.0-5.2); WHITE BLOOD COUNT (AUTO) 13.7 K/uL (4.3-11.0)
[2017-03-23] MEDS: CALCITRIOL ORAL SOLUTION 1 MCG/ML NG SCH (12:26)
--- NOTE | 2017-03-23 13:19 | NUR ---
-PATIENT EATING LUNCH WITH FRIEND AT HER BEDSIDE, PATIENT RE-EXPLAINED ON LASIX FREQUENCY , BUT STILL INSISTS ON HER HOME DIURETIC GIVNE BY HER OWN PRIMARY MD.
--- NOTE | 2017-03-23 14:18 | NUR ---
- Called & returned phone call to Juan J , patient's son.
[2017-03-23] MEDS: SOD FERRIC GLUC 125 MG in IV NS 0.9% 100 ML IV SCH (14:25)
[2017-03-23] MEDS ORDERED: NEUTRA PHOS 1 POWD.PACKET NG ONE (15:30)
[2017-03-23] MEDS ORDERED: ALPRAZOLAM 0.25 MG TABLET PO PRN (15:30)
[2017-03-23 16:00] VITALS: BP 155/75
[2017-03-23] MEDS: CALCIUM CARBONATE (1250) 500 MG TABLET PO SCH (17:08)
[2017-03-23] MEDS: CHOLECALCIFEROL 1,000 UNIT TABLET (VIT D3) PO SCH (17:08)
--- NOTE | 2017-03-23 18:54 | NUR ---
RN CLOSING NOTES: - Juan J, miladys called & was explained that cooperative manager can be talked to in AM & FOR HOME DISCHARGE will be called to MD in AM , Son agreed to call in AM , & was also informed that patient was on room-air since noon& remained to have non-labored respirations. Patient has been frequently ambulating to bathroom using walker with supervision.
[2017-03-23 20:00] VITALS: BP 122/66
[2017-03-24] MEDS ORDERED: LORAZEPAM 1 MG TABLET ONE (00:09)
[2017-03-24] MEDS ORDERED: LORAZEPAM 1 MG TABLET PO PRN (00:30)
[2017-03-24] MEDS: LIDOCAINE VISCOUS 2% UD 15 ML UDC MM SCH ×2 (01:30→09:44)
[2017-03-24] MEDS: IPRATROPIUM NEB FS 0.5 MG/2.5 ML AMPUL.NEB NEB SCH ×3 (01:45→14:04)
[2017-03-24] MEDS: ALBUTEROL FS 2.5 MG/3 ML VIAL.NEB NEB SCH ×3 (01:45→14:04)
[2017-03-24] MEDS: LEVOTHYROXINE SODIUM 75 MCG TABLET PO SCH (06:00)
--- NOTE | 2017-03-24 06:44 | NUR ---
MS RN NOTES AWAKE & RESPONSIVE. NOT IN ANY DISTRESS. NO SOB NOTED. DENIES ANY PAIN OR DISCOMFORT AT THIS TIME. WITH MIDLINE PATENT & INTACT. MONITORED ACCORDINGLY. CALL LIGHT WITHIN REACH. BED IN LOWEST POSITION. SR UP X 3 FOR SAFETY WITH BED ALARM ON. WILL ENDORSE TO NEXT SHIFT.
--- NOTE | 2017-03-24 07:20 | NUR ---
MS RN OPENING NOTES RECEIVED PT FROM NIGHTSHIFT NURSE IN STABLE CONDITION. PT IS A/O X3. NO SOB OR SIGNS OF DISTRESS NOTED. BREATHING IS EVEN AND UNLABORED. PT IS ON ROOM AIR AND SATING WELL @ 98%. PT DENIES ANY PAIN AT THIS TIME. RIGHT UPPER ARM MIDLINE NOTED. MIDLINE IS INTACT AND PATENT TO NS FLUSH. NO REDNESS OR SIGNS OF INFILTRATION NOTED. BED IN LOW LOCKED POSITION, SIDE RAILS UP X2, CALL LIGHT WITHIN REACH. WILL CONTINUE TO MONITOR
[2017-03-24 08:00] VITALS: BP 183/86
[2017-03-24] MEDS ORDERED: predniSONE 20 MG TABLET PO SCH (09:00)
[2017-03-24] MEDS: FLECAINIDE ACETATE (100 MG) 100 MG TABLET PO SCH (09:44)
[2017-03-24] MEDS: CALCITRIOL ORAL SOLUTION 1 MCG/ML NG SCH (09:45)
[2017-03-24] MEDS: SUCRALFATE 1 G/10 ML UDC GT SCH ×2 (09:45→12:20)
[2017-03-24 09:46] VITALS: BP 176/89
[2017-03-24] MEDS: CARVEDILOL 6.25 MG TABLET PO SCH (09:46)
[2017-03-24] MEDS: SILDENAFIL CITRATE 20 MG TABLET PO SCH (09:47)
[2017-03-24] MEDS: ATORVASTATIN 10 MG TABLET PO SCH (09:50)
[2017-03-24 12:07] LABS: ALANINE AMINOTRANSFERASE 23 U/L (12-78); ALBUMIN 2.8 g/dL (3.4-5.0); ALKALINE PHOSPHATASE 51 U/L (46-116); ASPARTATE AMINOTRANSFERASE 29 U/L (15-37); BILIRUBIN,TOTAL 0.3 mg/dL (0.2-1.0); CALCIUM, SERUM 8.4 mg/dL (8.5-10.1); CARBON DIOXIDE 27 mmol/L (21-32); CHLORIDE 109 mmol/L (98-107); CREATININE 1.4 mg/dL (0.6-1.3); GLUCOSE 83 mg/dL (74-106); MAGNESIUM 1.9 mg/dL (1.8-2.4); POTASSIUM 3.6 mmol/L (3.5-5.1); SODIUM SERUM 144 mmol/L (136-145); TOTAL PROTEIN, SERUM 5.8 g/dL (6.4-8.2); UREA NITROGEN, BLOOD 26 mg/dL (7-18)
[2017-03-24] MEDS ORDERED: NEUTRA PHOS 1 POWD.PACKET NG ONE (14:30)
--- NOTE | 2017-03-24 16:09 | NUR ---
MS TAILINGS WORKER NOTES PT WAS DISCHARGED FROM FACILITY IN STABLE CONDITION. ALL NEEDS WERE MET DURING SHIFT AND ORDERS CARRIED OUT ACCORDINGLY. ALL DUE MEDS GIVE. DISCHARGE INSTRUCTIONS WERE DISCUSSED IN DETAIL WITH THE PATIENT. SHE VERBALIZED FULL UNDERSTANDING OF DISCHARGE INSTRUCTIONS AND SIGNED ALL PAPERWORK INCLUDING BELONGINGS FORM. DISCHARGE PHOTOS TAKEN AND PLACED IN PT'S CHART. MIDLINE WAS SUCCESSFULLY REMOVED. NO COMPLICATIONS NOTED. PT WILL BE SEEN BY A HOME HEALTH AGENCY UPON DISCHARGE FOR FURTHER CARE. PAPER GUILLOTINE OPERATOR JOHN IS PREPARING HER HOME HEALTH. PRESCRIPTION FORM WAS GIVEN TO PT AND SHOWN TO HER RETAIL BUSINESS DEVELOPMENT MANAGER. SHE LEFT WITH ALL BELONGINGS AND PAPERWORK. SHE WAS SAFELY ESCORTED TO HER CAR BY THE BENEFITS COUNSELOR AND LEFT VIA PRIVATE VEHICLE DRIVEN BY HER RETAIL BUSINESS DEVELOPMENT MANAGER.
== END 2017-03-24 16:10 | disposition home health service (06) | DRG 377 ==
LOC: ER 02:00 → TELE 05:43 → MED 11:25
PROVIDERS: ADMIT Nurse Practitioner Acute Care; ATTEND Nurse Practitioner Acute Care
PROC: 05H533Z Insertion of Infusion Device into Right Subclavian Vein, Percutaneous Approach (ICD-10-PCS; 2017-03-18)
PROC: 30233N1 Transfusion of Nonautologous Red Blood Cells into Peripheral Vein, Percutaneous Approach (ICD-10-PCS; 2017-03-18)
PROC: 0DB78ZX Excision of Stomach, Pylorus, Via Natural or Artificial Opening Endoscopic, Diagnostic (ICD-10-PCS; principal; 2017-03-19 14:30)
DX: K25.0 Acute gastric ulcer with hemorrhage (principal); N17.0 Acute kidney failure with tubular necrosis; J96.01 Acute respiratory failure with hypoxia; I27.20 Pulmonary hypertension, unspecified; E87.2 Acidosis; J81.1 Chronic pulmonary edema; N18.4 Chronic kidney disease, stage 4 (severe); D68.59 Other primary thrombophilia; I48.0 Paroxysmal atrial fibrillation; I13.0 Hypertensive heart and chronic kidney disease with heart failure and stage 1 through stage 4 chronic kidney disease, or unspecified chronic kidney disease; D62 Acute posthemorrhagic anemia; J98.11 Atelectasis; J44.1 Chronic obstructive pulmonary disease with (acute) exacerbation; K29.01 Acute gastritis with bleeding; I50.9 Heart failure, unspecified; E83.39 Other disorders of phosphorus metabolism; D50.9 Iron deficiency anemia, unspecified; D72.829 Elevated white blood cell count, unspecified; E78.5 Hyperlipidemia, unspecified; Z95.0 Presence of cardiac pacemaker; Z90.49 Acquired absence of other specified parts of digestive tract; Z87.891 Personal history of nicotine dependence; Z86.73 Personal history of transient ischemic attack (TIA), and cerebral infarction without residual deficits; Z85.3 Personal history of malignant neoplasm of breast; Z88.0 Allergy status to penicillin; Z92.3 Personal history of irradiation
CPT/HCPCS: 36415; 71010-TC; 76642-TC; 80048-TC; 80053-TC; 80076-TC; 81000-TC; 82306; 82728-TC; 82746; 83540-TC; 83605-TC; 83735-TC; 84100-TC; 84439-TC; 84443-TC; 84484-TC; 85025-TC; 85027-TC; 85730-TC; 86300; 86850-TC; 86921-TC; 87040-TC; 87081-TC; 87086-TC; 88305-TC; 88313-TC; 88342; 93307-TC; 94799-TC; A4606; A9563; C9113; J1940; J2060; J2270; J2405; J2543; J2704; J2916; J2930; J3480; J3490; J7030; J7040; J7042; J7050; J7060; P9016-BL; Q9967; Z7610

== ENCOUNTER 2017-04-03 12:50 | Outpatient (CLI) | payer MEDICARE, OTHER ==
[~2017-04-03 12:50] MED LIST changes: -ACET160T6 PO; -ANAS1TAB PO; +CALC-1026 PO; +CARV6.25 PO; +CHOL100044 PO; -CLON0.1T PO; +CYAN10009 PO; -DIGO50SO2 PO; +FLEC50TA3 PO; -LETR2.5T PO; -LEVO125T PO; +LEVO137T24 PO; -LORA-258 PO; -LOSA1TAB9 PO; -LOSA50TA3 PO; -MEPE50TA2 PO; -METO25TA20 PO; -PANT20TA2 PO; +PARI1CAP PO; -PRED10TA PO; +ROSU10TA PO; +SEVE800T8 PO; +SILD50TA PO; +SUCR1ORA6 GT; -TRAM50TA2 PO; -TRAM50TA92 PO; +VITA400C68 PO; -WARF1TAB47 PO; -ZOLP5TAB2 PO
[2017-04-03 13:05] VITALS: BP 110/58
== END 2017-04-03 23:59 | disposition home or self-care (01) ==
LOC: MSC 12:50
PROVIDERS: ATTEND Internal Medicine
DX: K29.71 Gastritis, unspecified, with bleeding (principal); J45.909 Unspecified asthma, uncomplicated; E78.5 Hyperlipidemia, unspecified; I12.9 Hypertensive chronic kidney disease with stage 1 through stage 4 chronic kidney disease, or unspecified chronic kidney disease; N18.4 Chronic kidney disease, stage 4 (severe); N17.9 Acute kidney failure, unspecified; D50.9 Iron deficiency anemia, unspecified; I48.0 Paroxysmal atrial fibrillation; N64.4 Mastodynia; Z90.49 Acquired absence of other specified parts of digestive tract; Z85.3 Personal history of malignant neoplasm of breast; Z86.73 Personal history of transient ischemic attack (TIA), and cerebral infarction without residual deficits

== ENCOUNTER 2017-06-22 20:30 | Inpatient (IN) | payer MEDICARE, OTHER ==
[~2017-06-22] VITALS: Ht 160 cm; Wt 59.9 kg
--- NOTE | 2017-06-22 20:40 | NUR ---
PT WANG FROM HOME PT STATES "CP X3 WEEKS/SOB"; NO MEDS GIVEN DECKHAND CRAB BOAT.PT AOX3 RR EVEN AND UNLABORED. NO SOB NOTED. NO NVD AT THIS TIME. PT GOWNED AND PLACED ON MONITOR. DR. BHAT AT BEDSIDE FOR EVAL.
[2017-06-22 21:12] LABS: BASOPHILS % (AUTO) 0.5 % (0.0-2.0); EOSINOPHILS # (AUTO) 0.1 /CMM (0.0-0.7); EOSINOPHILS % (AUTO) 1.4 % (0.0-6.0); HEMATOCRIT 32 % (33-45); LYMPHOCYTES # (AUTO) 1.2 /CMM (0.8-4.8); LYMPHOCYTES % (AUTO) 16.1 % (20.0-44.0); MEAN CORPUSCULAR HEMOGLOBIN 30 PG (26.0-33.0); MEAN CORPUSCULAR HGB CONC 35 g/dl (31.0-36.0); MEAN CORPUSCULAR VOLUME 87 fL (82-100); MONOCYTES # (AUTO) 0.7 /CMM (0.1-1.30); MONOCYTES % (AUTO) 8.7 % (2.0-12.0); NEUTROPHILS # (AUTO) 5.6 /CMM (1.8-8.9); NEUTROPHILS % (AUTO) 73.3 % (43.0-81.0); PLATELET COUNT (AUTO) 206 /CMM (150-450); RDW COEFFICIENT OF VARIATION 14.4 (11.5-15.0); RED BLOOD CELL COUNT(AUTO) 3.64 MIL/uL (4.0-5.2); WHITE BLOOD COUNT (AUTO) 7.6 K/uL (4.3-11.0)
[2017-06-22 21:24] LABS: CALCIUM, SERUM 9.1 mg/dL (8.5-10.1); CARBON DIOXIDE 29 mmol/L (21-32); CHLORIDE 104 mmol/L (98-107); GLUCOSE 98 mg/dL (74-106); POTASSIUM 4.5 mmol/L (3.5-5.1); SODIUM SERUM 140 mmol/L (136-145); UREA NITROGEN, BLOOD 41 mg/dL (7-18)
[2017-06-22 21:27] LABS: INR 1.05 (0.85-1.15)
[2017-06-22] MEDS ORDERED: IV NS 0.9% 500 ML BAG IV ONE (21:30)
[2017-06-22] MEDS ORDERED: METOPROLOL TARTRATE INJ 5 MG/5 ML AMPUL IV ONE (21:30)
[2017-06-22 21:33] LABS: TROPONIN I < 0.017 ng/mL (0.00-0.056)
[2017-06-22] MEDS ORDERED: METOPROLOL TARTRATE INJ 5 MG/5 ML AMPUL ONE (21:34)
--- NOTE | 2017-06-22 21:43 | NUR ---
PAGED DR.WALTER CASTLE AT [phone]
[2017-06-22] MEDS ORDERED: FLECAINIDE ACETATE (100 MG) 100 MG TABLET PO SCH (22:00)
--- NOTE | 2017-06-22 22:10 | NUR ---
TELE 323-2
[2017-06-22] MEDS ORDERED: Z GUARD REMEDY 2 OZ OINT TP PRN (22:30)
[2017-06-22] MEDS ORDERED: MAGNESIUM HYDROXIDE 30 ML UDC PO PRN (22:30)
[2017-06-22] MEDS ORDERED: MAG HYDROX/AL HYDROX/SIMETH 30 ML UDC PO PRN (22:30)
[2017-06-22] MEDS ORDERED: ONDANSETRON HCL/PF 4 MG/2 ML VIAL IVP PRN (22:30)
[2017-06-22] MEDS ORDERED: HYDROCODONE/APAP 5/325MG 1 EACH TABLET PO PRN (22:30)
--- NOTE | 2017-06-22 22:46 | NUR ---
REPORT GIVEN TO RVI RN FOR TELE ADMISSION AND TASHIA.
[2017-06-22] MEDS ORDERED: FLECAINIDE ACETATE (100 MG) 100 MG TABLET ONE (22:54)
[2017-06-22 23:05] VITALS: BP 131/79
--- NOTE | 2017-06-22 23:05 | NUR ---
RN NOTES RECEIVED PATIENT FROM ER FOR DX PALPITATIONS. AO X 3, ABLE TO MAKE NEEDS KNOWN. NO ACUTE DISTRESS NOTED. DENIES ANY PAIN AT THIS TIME. TELE READING SINUS RHYTHM HR 98. SKIN ASSESSMENT DONE. SAFETY REMINDERS GIVEN. ORIENTATION OF THE ROOM AND UNIT GIVEN. ON LOW BED WITH BILATERAL UPPER SIDE RAILS UP. CALL RANDLE WITHIN EASY REACH. WILL CONTINUE TO MONITOR.
--- NOTE | 2017-06-22 23:10 | NUR ---
TRANSFERRED PATIENT TO TELE BED VIA ALS PROTOCOL, NO INCIDENT NOTED.
[2017-06-23] VITALS: BP 131/79
[2017-06-23] MEDS: LORAZEPAM 0.5 MG TABLET PO PRN ×3 (00:42→21:48)
[2017-06-23] MEDS: ACETAMINOPHEN 325 MG TABLET PO PRN ×2 (01:55→20:26)
[2017-06-23 04:00] VITALS: BP 130/69
--- NOTE | 2017-06-23 06:19 | NUR ---
RN NOTES PATIENT IN BED ASLEEP, EASILY AROUSABLE. RESPIRATIONS EVEN. NO SIGNS OF PAIN NOTED. NEEDS ATTENDED. SAFETY PRECAUTIONS AND COMFORT MEASURES IN PLACE. WILL GIVE REPORT TO DAY SHIFT FOR CONTINUITY OF CARE.
[2017-06-23] MEDS: LEVOTHYROXINE SODIUM 75 MCG TABLET PO SCH (06:44)
[2017-06-23 06:49] LABS: BASOPHILS # (AUTO) 0.1 /CMM (0.0-0.2); BASOPHILS % (AUTO) 0.8 % (0.0-2.0); EOSINOPHILS # (AUTO) 0.1 /CMM (0.0-0.7); HEMATOCRIT 30 % (33-45); HEMOGLOBIN 9.9 g/dL (11.5-14.8); LYMPHOCYTES # (AUTO) 1.2 /CMM (0.8-4.8); LYMPHOCYTES % (AUTO) 19.2 % (20.0-44.0); MEAN CORPUSCULAR HEMOGLOBIN 30 PG (26.0-33.0); MEAN CORPUSCULAR HGB CONC 33 g/dl (31.0-36.0); MEAN CORPUSCULAR VOLUME 89 fL (82-100); MONOCYTES # (AUTO) 0.7 /CMM (0.1-1.30); MONOCYTES % (AUTO) 11.4 % (2.0-12.0); NEUTROPHILS # (AUTO) 4.3 /CMM (1.8-8.9); NEUTROPHILS % (AUTO) 66.6 % (43.0-81.0); PLATELET COUNT (AUTO) 179 /CMM (150-450); RDW COEFFICIENT OF VARIATION 14.9 (11.5-15.0); RED BLOOD CELL COUNT(AUTO) 3.33 MIL/uL (4.0-5.2); WHITE BLOOD COUNT (AUTO) 6.5 K/uL (4.3-11.0)
[2017-06-23 07:00] LABS: CALCIUM, SERUM 8.2 mg/dL (8.5-10.1); CARBON DIOXIDE 28 mmol/L (21-32); CHLORIDE 109 mmol/L (98-107); CREATININE 1.9 mg/dL (0.6-1.3); GLUCOSE 84 mg/dL (74-106); MAGNESIUM 2.2 mg/dL (1.8-2.4); PHOSPHORUS 3.6 mg/dL (2.5-4.9); POTASSIUM 3.9 mmol/L (3.5-5.1); SODIUM SERUM 145 mmol/L (136-145); UREA NITROGEN, BLOOD 38 mg/dL (7-18)
[2017-06-23 07:03] LABS: TROPONIN I < 0.017 ng/mL (0.00-0.056)
[2017-06-23 07:10] LABS: CHOLESTEROL 129 mg/dL (<200); HDL CHOLESTEROL 49 mg/dL (40-60); LDL 60 mg/dL (0-99); THYROID STIMULATING HORMONE 6.876 uIU/mL (0.358-3.74); TRIGLYCERIDES 128 mg/dL (30-150)
--- NOTE | 2017-06-23 07:30 | NUR ---
RN NOTES RECEIVED PATIENT IN BED AWAKE ALERT AND VERBALLY RESPONSIVE, RESTING COMFORTABLY IN BED,ABLE TO MAKE NEEDS KNOW. RESPIRATIONS EVEN AND UNLABORED,DENIES ANY PAIN OR DISCOMFORT AT THIS TIME. IV ACCESS TO LEFT ARM PATENT AND INTACT, NO REDNESS OR INFILTRATION NOTED. KEPT CLEAN DRY AND COMFORTABLE, CALL LIGHT WITHIN EASY REACH, SAFETY MEASURES IN PLACE, WILL CONTINUE TO MONITOR
[2017-06-23 08:00] VITALS: BP_SYST 122; BP_SYST 129; BP_DIAS 74; BP_DIAS 95
[2017-06-23] MEDS ORDERED: AMIODARONE 900 MG in IV D5W 500 ML IV PRN (08:00)
[2017-06-23] MEDS ORDERED: AMIODARONE 150 MG in IV D5W 100 ML IV ONE (08:00)
--- NOTE | 2017-06-23 08:00 | NUR ---
RN NOTES PATIENT SEEN AND EXAMINED BY DR. MCDANIEL WITH ORDERS FOR TRANSFER TO [facility] FOR AMIODORONE NAMAN, WEBSPHERE ADMINISTRATOR AWARE, WILL AWAIT BED AVAILABILITY AND CONTINUE TO MONITOR AT THIS TIME
[2017-06-23] MEDS: CARVEDILOL 6.25 MG TABLET PO SCH ×2 (08:29→16:49)
[2017-06-23] MEDS: SUCRALFATE 1 G/10 ML UDC GT SCH ×4 (08:31→21:48)
[2017-06-23] MEDS: IV NS 0.9% 1,000 ML IV PRN (08:33)
--- NOTE | 2017-06-23 08:56 | NUR ---
MICHELLE NOTES PT TRANSFERRED TO [facility] PER [facility]NY [employer] Addendum: 06/23/17 at 0903 by EDWIN JOSHI RN RN NOTES REPORT GIVEN TO RN FOR CONTINUITY OF CARE
[2017-06-23] MEDS: VITAMIN E 400 UNIT CAPSULE PO SCH (09:00)
[2017-06-23] MEDS ORDERED: SEVELAMER CARBONATE 800 MG TABLET PO SCH (09:00)
[2017-06-23] MEDS ORDERED: Medication Not On Formulary EA (Rosuvastatin Calcium (Crestor) 1 TAB) PO SCH (09:00)
[2017-06-23] MEDS ORDERED: PARICALCITOL PO SCH (09:00)
--- NOTE | 2017-06-23 09:16 | NUR ---
[facility] RN INITIAL NOTE PATIENT TRANSFERRED FROM MED SURG. PT A/O X3. PT AGITATED STATED SHE IS ONE HERE FOR ECHO AND WANTS ECHO DONE NOW. PATIENT WANTS RENVELA POWDER FORM CALLED PHARMACY. AWAITING AMINO. PT ON TELE SR-ST 103. NO C/O PAIN. ALL SAFETY MEASURES ADRESSED. WALKER AT BEDSIDE. PATIENT INSISTS ON GOING TO BATH ROOM WITH WALKER EDUCATED PATIENT ON FALL PRECAUTIONS.
--- NOTE | 2017-06-23 09:30 | NUR ---
CALLED PHARMACY REGARDING AMINO DRIP AND OTHER PO MEDICATIONS NOT AVAILABLE IN [facility]. WILL SEND
[2017-06-23] MEDS: CYANOCOBALAMIN 500 MCG TABLET PO SCH (10:10)
[2017-06-23] MEDS: SEVELAMER CARBONATE 0.8 GM POWD.PACK PO SCH ×3 (10:10→16:50)
[2017-06-23] MEDS: APIXABAN 2.5 MG TABLET PO SCH ×2 (10:18→16:50)
--- NOTE | 2017-06-23 10:18 | NUR ---
[facility] RN NOTE AMINO BOLUS STARTED B/P 113/61 HR 89.
--- NOTE | 2017-06-23 10:21 | NUR ---
[facility] RN NOTE RAPID RESPONSE CALLED PT PASSED OUT, TURNED BLUE, NO PULSE FELT ON CAROTID ARTERY. COMPRESSION BEGUN. PATIENT CAME TO A/O X 4 WILL CONTINUE TO MONITOR CLOSELY B/P 148/87 HR104.
--- NOTE | 2017-06-23 10:22 | NUR ---
ICU/RN - RAPID RESPONSE RN responded to rapid response; pt with sudden loss of consciousness, syncope per primary RN with no palpable carotid pulse, compressions started after transfer from telemetry floor to [facility]. Upon RN arrival to unit pt with pulse, disoriented, VS 173/75, uncontrolled A-fib 130-140's on monitor; on NRB 15L/min. VS reassessed after 5 min 148/87, blood glucose 112mg/DL, pt now awake, alert, responding to commands, able to state reason for hospitalization. Amiodarone bolus received as ordered and initiated by primary RN. No neuro deficits noted and pt back to baseline per primary RN.
--- NOTE | 2017-06-23 10:55 | NUR ---
[facility] RN NOTE BEGAN AMINO DRIP. PT C/O OF FEELING WERID. CALLED DR. MCDANIEL REPORT PT SYMPTOMS. ORDERED TO STOP DRIP ORDERED CT PULMONARY ANGIO.
--- NOTE | 2017-06-23 11:35 | NUR ---
[facility] RN NOTE DR. GATES @ BEDSIDE PT REFUSING 18g INSERTION FOR CT. CALLED RADIOLOGY STATED OK 20G RAC. SPOKE TO PT SHE WILL SIGNED CONSENT.
[2017-06-23 12:00] VITALS: BP 131/72
[2017-06-23] MEDS ORDERED: CT SWABBABLE VALVE TRANS SET 1 EA INFUS.SET MC ONE (12:34)
[2017-06-23] MEDS ORDERED: IOHEXOL-350 100 ML VIAL IV ONE (12:34)
[2017-06-23] MEDS ORDERED: IV NS 0.9% 500 ML IV ONE (12:35)
[2017-06-23] MEDS ORDERED: FLECAINIDE ACETATE 50 MG TABLET PO SCH (15:24)
[2017-06-23 16:00] VITALS: BP 150/84
[2017-06-23] MEDS ORDERED: SILD20TA PO (16:15)
--- NOTE | 2017-06-23 16:16 | NUR ---
RIB CHOPPER/MED RECON SPOKE WITH BLAISE HORN-CAREGIVER [phone] PER PATIENT INSTRUCTION, RE: ZEMPLAR/NON-FORMULARY. BLAISE WILL BRING HOME MEDICATION SUPPLY TOMORROW IN AM. PRIMARY NURSE AND PHARMACY MADE AWARE.
--- NOTE | 2017-06-23 16:30 | NUR ---
[facility] RN NOTE PATIENT C/O PAIN IN IV SITE POST CT WITH CONTRAST. PT REFUSING IV INSERTION DUE TO PT BEING HARD STICK. SPOKE TO CHARGE NURSE MELVIN MARTINEZ. AWAITING MIDLINE INSERTION.
[2017-06-23] MEDS: SILDENAFIL CITRATE 20 MG TABLET PO SCH (16:56)
[2017-06-23] MEDS: CHOLECALCIFEROL 1,000 UNIT TABLET (VIT D3) PO SCH (17:57)
[2017-06-23] MEDS: CALCIUM CARBONATE (1250) 500 MG TABLET PO SCH (17:57)
[2017-06-23] MEDS ORDERED: CALCIUM CARBONATE (1250) 500 MG TABLET PO SCH (18:00)
[2017-06-23] MEDS ORDERED: CHOLECALCIFEROL 1,000 UNIT TABLET (VIT D3) PO SCH (18:00)
--- NOTE | 2017-06-23 19:35 | NUR ---
PRICE RN NOTE PT STABLE PT C/O CHEST PAIN DUE TO CHEST COMPRESSIONS FROM AM. TELE A FIB 103. NC 2L FOR COMFORT. ALL SAFETY MEASURES IN PLACE. PT AWAITING MIDLINE INSERTION. REPORT GIVEN TO JOSE ROBERTO MARTINEZ FOR TASHIA.
[2017-06-23 20:00] VITALS: BP 137/77
--- NOTE | 2017-06-23 20:00 | NUR ---
RN NOTE RECEIVED ENDORSEMENT FROM KAUSHIK LINO RN. PATIENT IS IN BED, NO DISTRESS AT THIS TIME, AWAKE AND ALERT, ORIENTED. COMPLAINING OF MIDCHEST DISCOMFORT, NON RADIATING, MORE RELATED TO THE CHEST COMPRESSIONS THE PATIENT RECEIVED IN THE DAY. PATIENT WITH NO SOB NOTED. AFIB ON TELE WITH HR IN THE 100s. PATIENT IS OBSERVED TO BE ANXIOUS, AGITATED; REASSURED PATIENT NEEDED, UPDATED WITH PLAN OF CARE AT THIS TIME. PATIENT ASSISTED WITH ADLS, NEEDS ANTICIPATED AND MET. SAFETY AND COMFORT ENSURED. BED IN LOW AND LOCKED POSITION. CALL LIGHT IN REACH. WILL MONITOR.
[2017-06-23] MEDS: FLECAINIDE ACETATE (100 MG) 100 MG TABLET PO SCH (20:26)
[2017-06-23] MEDS: ATORVASTATIN 10 MG TABLET PO SCH (21:59)
--- NOTE | 2017-06-23 22:00 | NUR ---
RN NOTE PATIENT REFUSED LIPITOR. PER PATIENT SHE IS NOT ON LIPITOR, INSTEAD SHE IS TAKING PRAVACHOL BY WHICH PATIENT WAS UNABLE TO RECALL THE DOSAGE. PER PATIENT HER MD HAS CHANGED HER LIPITOR TO CRESTOR AND NOW SHE IS TAKING PRAVACHOL D/T CKD. PATIENT REFUSED TO TAKE LIPITOR. WILL ENDORSE ACCORDINGLY IN AM TO F/UP.
--- NOTE | 2017-06-23 22:02 | NUR ---
Midline Attempted to insert midline into right arm but patient moved during procedure and therefore attempt was unsuccessful; pt refused to try a second time. RN aware.
[2017-06-24] VITALS: BP 132/78
--- NOTE | 2017-06-24 01:00 | NUR ---
RN NOTE PATIENT SLEEPING COMFORTABLY, NO DISTRESS. IVF ORDERED. PATIENT CONVERTED TO NSR AT THIS TIME, HR OF 70.
[2017-06-24 04:00] VITALS: BP 114/54
[2017-06-24] MEDS: IV NS 0.9% 1,000 ML IV PRN (06:07)
[2017-06-24 06:23] LABS: BASOPHILS % (AUTO) 0.7 % (0.0-2.0); EOSINOPHILS # (AUTO) 0.1 /CMM (0.0-0.7); EOSINOPHILS % (AUTO) 1.7 % (0.0-6.0); HEMATOCRIT 28 % (33-45); HEMOGLOBIN 9.3 g/dL (11.5-14.8); LYMPHOCYTES # (AUTO) 0.9 /CMM (0.8-4.8); LYMPHOCYTES % (AUTO) 12.6 % (20.0-44.0); MEAN CORPUSCULAR HEMOGLOBIN 30 PG (26.0-33.0); MEAN CORPUSCULAR HGB CONC 33 g/dl (31.0-36.0); MEAN CORPUSCULAR VOLUME 90 fL (82-100); MONOCYTES # (AUTO) 0.8 /CMM (0.1-1.30); MONOCYTES % (AUTO) 10.6 % (2.0-12.0); NEUTROPHILS # (AUTO) 5.3 /CMM (1.8-8.9); NEUTROPHILS % (AUTO) 74.4 % (43.0-81.0); PLATELET COUNT (AUTO) 167 /CMM (150-450); RDW COEFFICIENT OF VARIATION 15.5 (11.5-15.0); RED BLOOD CELL COUNT(AUTO) 3.13 MIL/uL (4.0-5.2); WHITE BLOOD COUNT (AUTO) 7.2 K/uL (4.3-11.0)
[2017-06-24 06:30] LABS: ALANINE AMINOTRANSFERASE 21 U/L (12-78); ALKALINE PHOSPHATASE 45 U/L (46-116); ASPARTATE AMINOTRANSFERASE 20 U/L (15-37); BILIRUBIN,TOTAL 0.8 mg/dL (0.2-1.0); CALCIUM, SERUM 9.4 mg/dL (8.5-10.1); CARBON DIOXIDE 27 mmol/L (21-32); CHLORIDE 106 mmol/L (98-107); CREATININE 1.9 mg/dL (0.6-1.3); GLUCOSE 94 mg/dL (74-106); MAGNESIUM 2.3 mg/dL (1.8-2.4); PHOSPHORUS 4.3 mg/dL (2.5-4.9); POTASSIUM 3.9 mmol/L (3.5-5.1); SODIUM SERUM 141 mmol/L (136-145); TOTAL PROTEIN, SERUM 5.9 g/dL (6.4-8.2); UREA NITROGEN, BLOOD 33 mg/dL (7-18)
[2017-06-24 06:32] LABS: TROPONIN I 0.044 ng/mL (0.00-0.056)
--- NOTE | 2017-06-24 07:30 | NUR ---
RN NOTES RECEIVED PT FROM PRODUCT MARKETING INTERN, ON 2L NC NO SOB OR DISTRESS NOTED. A&0X3, SR ON THE TELE CARMITA HR 78. R AC 20G IV SITE INTACT WITH IVF AT 125ML/HR. BED LOCKED AND IN LOWEST POSITION, CALL LIGHT WITHIN REACH, WILL CONT TO CARMITA.
[2017-06-24] MEDS: SUCRALFATE 1 G/10 ML UDC GT SCH ×4 (07:47→21:35)
[2017-06-24] MEDS: LEVOTHYROXINE SODIUM 75 MCG TABLET PO SCH (07:47)
[2017-06-24 08:00] VITALS: BP 165/81
[2017-06-24] MEDS: SEVELAMER CARBONATE 0.8 GM POWD.PACK PO SCH ×3 (08:27→17:10)
[2017-06-24] MEDS: VITAMIN E 400 UNIT CAPSULE PO SCH (08:27)
[2017-06-24] MEDS: SILDENAFIL CITRATE 20 MG TABLET PO SCH ×2 (08:28→17:10)
[2017-06-24] MEDS: APIXABAN 2.5 MG TABLET PO SCH ×2 (08:28→18:24)
[2017-06-24] MEDS: CYANOCOBALAMIN 500 MCG TABLET PO SCH (08:28)
[2017-06-24] MEDS: CARVEDILOL 6.25 MG TABLET PO SCH ×2 (08:28→17:09)
[2017-06-24] MEDS: FLECAINIDE ACETATE (100 MG) 100 MG TABLET PO SCH ×2 (08:29→21:34)
[2017-06-24 12:00] VITALS: BP 145/80
[2017-06-24 16:00] VITALS: BP 154/88
[2017-06-24] MEDS: CALCIUM CARBONATE (1250) 500 MG TABLET PO SCH (17:09)
[2017-06-24] MEDS: CHOLECALCIFEROL 1,000 UNIT TABLET (VIT D3) PO SCH (17:09)
--- NOTE | 2017-06-24 18:45 | NUR ---
RN NOTES PT REMAINED IN STABLE CONDITION THROUGHOUT THE SHIFT, ALL NEEDS MET. NO SIGNIFICANT CHANGES NOTED. WILL ENDORSE TO ONCOMING SHIFT.
[2017-06-24] MEDS: ACETAMINOPHEN 325 MG TABLET PO PRN (18:50)
[2017-06-24 20:00] VITALS: BP 129/67
[2017-06-24] MEDS: ATORVASTATIN 10 MG TABLET PO SCH (21:35)
[2017-06-25] VITALS: BP 149/79
[2017-06-25] MEDS: LORAZEPAM 0.5 MG TABLET PO PRN (00:36)
[2017-06-25 04:00] VITALS: BP 153/80
--- NOTE | 2017-06-25 07:20 | NUR ---
STITCH BONDING MACHINE TENDER HELPER INITIAL NOTE REPORT RECEIVED AT THE BEDSIDE. PATIENT IS SLEEPING AT THIS TIME. NO SOB OR DISTRESS NOTED AT THIS TIME. PATIENT DOES NOT APPEAR TO BE IN PAIN, NO FACIAL GRIMACE NOTED. HEART RATE SINUS AT 76. BED IN A LOW POSITION, CALL LIGHT WITHIN PATIENT REACH. WILL CONTINUE TO MONITOR.
[2017-06-25] MEDS: LEVOTHYROXINE SODIUM 75 MCG TABLET PO SCH (07:48)
[2017-06-25] MEDS: SUCRALFATE 1 G/10 ML UDC GT SCH ×2 (07:48→11:51)
[2017-06-25 08:00] VITALS: BP 160/84
[2017-06-25 08:58] VITALS: BP 160/84
[2017-06-25] MEDS: CYANOCOBALAMIN 500 MCG TABLET PO SCH (08:58)
[2017-06-25] MEDS: APIXABAN 2.5 MG TABLET PO SCH (08:58)
[2017-06-25] MEDS: VITAMIN E 400 UNIT CAPSULE PO SCH (08:58)
[2017-06-25] MEDS: SILDENAFIL CITRATE 20 MG TABLET PO SCH (08:58)
[2017-06-25] MEDS: FLECAINIDE ACETATE (100 MG) 100 MG TABLET PO SCH (08:58)
[2017-06-25] MEDS: CARVEDILOL 6.25 MG TABLET PO SCH (08:58)
[2017-06-25] MEDS: SEVELAMER CARBONATE 0.8 GM POWD.PACK PO SCH ×2 (08:58→13:02)
[2017-06-25] MEDS: ACETAMINOPHEN 325 MG TABLET PO PRN (11:51)
[2017-06-25] MEDS ORDERED: APIX2.5T PO (13:43)
--- NOTE | 2017-06-25 14:20 | NUR ---
DISCHARGE INSTRUCTIONS GIVEN TO THE PATIENT AND ABLE TO UNDERSTAND. ALL PAPERWORK SIGNED AND BELONGINGS ACCOUNTED FOR. FLU AND PNEUMONIA SHOT NOT GIVEN PATIENT HAS HAD THEM IN FEBRUARY 2017. PICTURES OF SKIN NOT TAKEN PATIENT REFUSED. EXPLAINED THE IMPORTANCE OF DISCHARGE PHOTOS TO THE PATIENT, BUT SHE STILL REFUSES. SKIN IS INTACT, ONLY BRUISING AND DISCOLORATION NOTED. PATIENT LEFT IN STABLE CONDITION, VIA PRIVATE CAR, WITH SON. IV REMOVED AND PRESSURE APPLIED, NO BLEEDING NOTED AT THE SITE. NO SOB OR DISTRESS NOTED, PATIENT DENIES PAIN.
== END 2017-06-25 14:30 | disposition home or self-care (01) | DRG 308 ==
LOC: ER 20:32 → TELE 22:28 → TELE1 06-23 08:45 → TELE-TD 06-23 08:58 → TELE1 06-24 19:10 → MEDSG1 06-25 11:54
PROVIDERS: ADMIT Nurse Practitioner Acute Care; ATTEND Nurse Practitioner Acute Care
PROC: 5A12012 Performance of Cardiac Output, Single, Manual (ICD-10-PCS; principal; 2017-06-23)
DX: I48.91 Unspecified atrial fibrillation (principal); N17.0 Acute kidney failure with tubular necrosis; I46.9 Cardiac arrest, cause unspecified; E87.2 Acidosis; N18.4 Chronic kidney disease, stage 4 (severe); I27.20 Pulmonary hypertension, unspecified; D63.8 Anemia in other chronic diseases classified elsewhere; I13.10 Hypertensive heart and chronic kidney disease without heart failure, with stage 1 through stage 4 chronic kidney disease, or unspecified chronic kidney disease; Z79.01 Long term (current) use of anticoagulants; I48.92 Unspecified atrial flutter; Z86.73 Personal history of transient ischemic attack (TIA), and cerebral infarction without residual deficits; Z88.1 Allergy status to other antibiotic agents; Z88.0 Allergy status to penicillin; Z85.3 Personal history of malignant neoplasm of breast; E78.5 Hyperlipidemia, unspecified; Z90.710 Acquired absence of both cervix and uterus; Z95.0 Presence of cardiac pacemaker; Z87.891 Personal history of nicotine dependence; K21.9 Gastro-esophageal reflux disease without esophagitis; I44.7 Left bundle-branch block, unspecified; Z87.11 Personal history of peptic ulcer disease
CPT/HCPCS: 36415; 71045-TC; 80048-TC; 80053-TC; 80061-TC; 82728-TC; 82962-TC; 83540-TC; 83735-TC; 84100-TC; 84439-TC; 84443-TC; 84484-TC; 85025-TC; 85730-TC; 87081-TC; 93307-TC; 93970-TC; 94799-TC; A4606; J0282; J3490; J7030; J7040; J7060; Q9967; Z7610

== ENCOUNTER 2020-01-17 04:17 | Emergency (ER) | payer MEDICARE, OTHER ==
[~2020-01-17] VITALS: Ht 160 cm; Wt 54.4 kg
[~2020-01-17 04:17] MED LIST changes: +APIX2.5T PO; +CYAN-51 PO; -CYAN10009 PO; -ROSU10TA PO; +ROSU10TA2 PO; +SILD20TA PO; -SILD50TA PO
--- NOTE | 2020-01-17 04:20 | NUR ---
XRAY AT BEDSIDE
--- NOTE | 2020-01-17 04:20 | NUR ---
PT [id number] FROM HOME C/O L ANKLE PAIN AND LACERATION S/P FALL SOFTWARE PROGRAM MANAGER. +UNKOWN TDAP. +MINIMAL BLEEDING +ON BLOOD THINNER. PT AAOX4, VSS, RESPIRATIONS EVEN AND UNLABORED ON RA W/ NAD NOTED. PT CONNECTED TO THE MONITOR AND POX
[2020-01-17] MEDS ORDERED: TDAP [DIPH/PERTUSSIS/TET] 0.5 ML VIAL IM ONE (04:28)
[2020-01-17] MEDS ORDERED: ACETAMINOPHEN 650 MG/20.3 ML UDC ONE (04:28)
[2020-01-17] MEDS: ACETAMINOPHEN 650 MG/20.3 ML UDC PO ONE (04:49)
[2020-01-17] MEDS: TDAP [DIPH/PERTUSSIS/TET] 0.5 ML VIAL IM ONE (04:49)
--- NOTE | 2020-01-17 04:49 | NUR ---
PT MEDICATED ORDERED
--- NOTE | 2020-01-17 05:07 | NUR ---
LEFT A MESSAGE FOR PT'S CAREGIVER BLAISE([phone])
--- NOTE | 2020-01-17 05:51 | NUR ---
PT RESTING COMFORTABLY. VSS, RESPIRATIONS EVEN AND UNLABORED ON RA W/ NAD NOTED. PT CONNECTED TO THE MONITOR AND POX
--- NOTE | 2020-01-17 06:02 | NUR ---
ATTEMPTED TO CALL CAREGIVER, BLAISE. NO ANSWER. LEFT A MESSAGE
--- NOTE | 2020-01-17 06:36 | NUR ---
called caregiver regarding pt discharge ([phone]). no answer.
--- NOTE | 2020-01-17 06:57 | NUR ---
ATTEMPTED TO CALL CAREGIVER, BLAISE. NO ANSWER. LEFT A MESSAGE
--- NOTE | 2020-01-17 07:04 | NUR ---
PER PT, CAREGIVER WON'T BE AVAILABLE TO PICK HER UP UNTIL NOON TIME.
--- NOTE | 2020-01-17 07:24 | NUR ---
RECEIVED ENDORSEMENT FROM JOSE MARTINEZ FOR TASHIA, PATIENT IN BED AWAKE, HOOKED TO MONITOR. VSS. WILL CONTINUE TO MONITOR ACCORDINGLY.
--- NOTE | 2020-01-17 08:21 | NUR ---
PER PATIENT, SHE WILL BE PICKED UP BY A FRIEND FROM [facility].
--- NOTE | 2020-01-17 08:56 | NUR ---
[facility] LIVES IN [facility]
--- NOTE | 2020-01-17 10:30 | NUR ---
Patient informed this SW that she wants to go home. Patient resides alone in the home with a caregiver from 12pm-6pm, Fatmata. Patients friend Nahomi to come pick the patient up before 11am. Patient wants to go home, ER Nurse Agustina and Richa notified patient needs a walker to return home. Patient refuses to go home in a taxi/Uber/Lyft because she does not know who was there previously. Friend Nahomi to arrive before 11am and caregiver Fatmata, per patient can come pick her up at 12 (noon).
--- NOTE | 2020-01-17 10:50 | NUR ---
PATIENT PICKED UP BY FRIEND JUDY MCCRACKENJosette [phone] IN STABLE CONDITION. ASSISTED IN FRONT OF ED VIA WHEELCHAIR. Written and verbal after care instructions given. Patient verbalizes understanding of instruction. PROVIDED PATIENT WITH EXTRA WOUND CLEANSER AND DRESSING.
[2020-01-17 10:55] VITALS: BP 126/72
== END 2020-01-17 10:56 | disposition home or self-care (01) ==
LOC: ER 04:18
DX: S81.812A Laceration without foreign body, left lower leg, initial encounter (principal); S93.492A Sprain of other ligament of left ankle, initial encounter; I12.9 Hypertensive chronic kidney disease with stage 1 through stage 4 chronic kidney disease, or unspecified chronic kidney disease; N18.9 Chronic kidney disease, unspecified; D63.1 Anemia in chronic kidney disease; I48.91 Unspecified atrial fibrillation; K21.9 Gastro-esophageal reflux disease without esophagitis; Z95.0 Presence of cardiac pacemaker; Z88.0 Allergy status to penicillin; Z88.6 Allergy status to analgesic agent; Z88.8 Allergy status to other drugs, medicaments and biological substances; Z86.73 Personal history of transient ischemic attack (TIA), and cerebral infarction without residual deficits; Z79.899 Other long term (current) drug therapy; W18.09XA Striking against other object with subsequent fall, initial encounter; Y93.89 Activity, other specified; Y92.89 Other specified places as the place of occurrence of the external cause; Y99.8 Other external cause status
CPT/HCPCS: 72170; 73600; 90471; 90715; 99285; A6403

== ENCOUNTER 2022-05-01 01:29 | Emergency (ER) | payer MEDICARE, OTHER ==
[~2022-05-01] VITALS: Ht 162.6 cm; Wt 59.0 kg
--- NOTE | 2022-05-01 01:37 | NUR ---
DR JOANNE NORRIS WITH PT FOR EVAL
--- NOTE | 2022-05-01 01:38 | NUR ---
BIBRA 37 FOR C/O ROGELIO PAIN AND INABILITY TO AMBULATE S/P FALL. PT A/OX3. TOLERATING R/A WELL WITH NO RESP DISTRESS. SAFETY MEASURES IN PLACE.
--- NOTE | 2022-05-01 01:38 | NUR ---
Note karely in EDM - 05/01/22 at 0548 by YAS BIBRA 39 FOR C/O BLE PAIN AND INABILITY TO AMBULATE S/P FALL. PT A/OX4. TOLERATING R/A WELL WITH NO RESP DISTRESS. SAFETY MEASURES IN PLACE.
--- NOTE | 2022-05-01 01:52 | NUR ---
PT TAKEN TO CT VIA FRANK
--- NOTE | 2022-05-01 02:34 | NUR ---
STREET INSPECTOR AT PT'S BEDSIDE
[2022-05-01 02:42] LABS: BASOPHILS % (AUTO) 0.5 % (0.0-2.0); EOSINOPHILS % (AUTO) 1.3 % (0.0-6.0); HEMATOCRIT 36 % (33-45); HEMOGLOBIN 11.3 g/dL (11.5-14.8); LYMPHOCYTES # (AUTO) 0.9 K/uL (0.8-4.8); LYMPHOCYTES % (AUTO) 14.7 % (20.0-44.0); MEAN CORPUSCULAR HGB CONC 32 g/dl (31.0-36.0); MEAN CORPUSCULAR VOLUME 96 fL (82-100); MONOCYTES # (AUTO) 0.8 K/uL (0.1-1.30); NEUTROPHILS # (AUTO) 4.4 K/uL (1.8-8.9); NEUTROPHILS % (AUTO) 70.5 % (43.0-81.0); PLATELET COUNT (AUTO) 139 K/uL (150-450); RED BLOOD CELL COUNT(AUTO) 3.72 MIL/uL (4.0-5.2); WHITE BLOOD COUNT (AUTO) 6.2 K/uL (4.3-11.0)
[2022-05-01 02:49] LABS: CALCIUM, SERUM 9.1 mg/dL (8.5-10.1); CARBON DIOXIDE 32 mmol/L (21-32); CHLORIDE 100 mmol/L (98-107); CREATININE 1.9 mg/dL (0.6-1.3); GLUCOSE 109 mg/dL (74-106); POTASSIUM 3.2 mmol/L (3.5-5.1); SODIUM SERUM 139 mmol/L (136-145); UREA NITROGEN, BLOOD 52 mg/dL (7-18)
--- NOTE | 2022-05-01 05:52 | NUR ---
PER PT, [facility]EL [facility] HAS PT'S HOUSE KEYS. LEFT VOICE MESSAGE. [phone]
--- NOTE | 2022-05-01 07:28 | NUR ---
TRENT WILL ENVIRONMENTAL EMERGENCIES PLANNER PT FOR D/C ETA 09:45AM
[2022-05-01 10:11] VITALS: BP 132/66
== END 2022-05-01 10:13 | disposition home or self-care (01) ==
LOC: ER 02:00
DX: Z04.3 Encounter for examination and observation following other accident (principal); I48.91 Unspecified atrial fibrillation; I12.9 Hypertensive chronic kidney disease with stage 1 through stage 4 chronic kidney disease, or unspecified chronic kidney disease; N18.9 Chronic kidney disease, unspecified; Z86.73 Personal history of transient ischemic attack (TIA), and cerebral infarction without residual deficits; Z85.3 Personal history of malignant neoplasm of breast; Z88.0 Allergy status to penicillin; Z88.8 Allergy status to other drugs, medicaments and biological substances; Z79.899 Other long term (current) drug therapy; W18.30XA Fall on same level, unspecified, initial encounter; Y93.01 Activity, walking, marching and hiking; Y92.89 Other specified places as the place of occurrence of the external cause; Y99.8 Other external cause status
CPT/HCPCS: 36415; 70450-TC; 80048-TC; 85025-TC

== ENCOUNTER 2022-05-03 17:19 | Emergency (ER) | payer MEDICARE, OTHER ==
[~2022-05-03] VITALS: Ht 160 cm; Wt 49.4 kg
[2022-05-03 17:19] VITALS: BP 142/74
--- NOTE | 2022-05-03 17:50 | NUR ---
established iv line right lower arm , blood sample obtained sent to lab
--- NOTE | 2022-05-03 17:56 | NUR ---
[id number] FR HOME C/O EPISTAXIS SINCE 399 TODAY, ON [address]. PT LIVES WITH SON WHO CALLED THE PARAMEDICS. PT HAS HX OF AFIB, STROKE WITH NO OBVIOUS UNILATERAL DEFICIT, AND LYMPHEDEMA ON LEFT ARM. PT ALSO C/O SOB WITH AN O2 SAT OF 95% RA. AAOX4. PLACED ON SHANK STAPLER. PT IS TACHYCARDIC AT 130 AFIB.
--- NOTE | 2022-05-03 19:03 | NUR ---
CALLED MANUEL DE LA TOR[place] ([facility]) [phone], LEFT A VOICEMAIL.
--- NOTE | 2022-05-03 19:12 | NUR ---
MANUEL (SON) AT BEDSIDE WITH DR. SALCEDO.
--- NOTE | 2022-05-03 19:25 | NUR ---
GAVE REPORT TO CLEO FOR TASHIA.
--- NOTE | 2022-05-03 19:31 | NUR ---
GRANULATOR OPERATOR AT PT'S BEDSIDE
--- NOTE | 2022-05-03 20:31 | NUR ---
Hammad cali in ED - 05/03/22 at 2108 by YAS Patient discharged to home in stable condition with son. Written and verbal after care instructions given. Patient verbalizes understanding of instruction.
--- NOTE | 2022-05-03 21:23 | NUR ---
Patient discharged to home in stable condition. Written and verbal after care instructions given to the Patient and his son who verbalizes understanding of instruction.
== END 2022-05-03 21:53 | disposition home or self-care (01) ==
LOC: ER 17:21
DX: R04.0 Epistaxis (principal); Z86.73 Personal history of transient ischemic attack (TIA), and cerebral infarction without residual deficits; I48.91 Unspecified atrial fibrillation; Z85.3 Personal history of malignant neoplasm of breast; D64.9 Anemia, unspecified; N18.9 Chronic kidney disease, unspecified; Z60.2 Problems related to living alone; Z79.899 Other long term (current) drug therapy; Z88.0 Allergy status to penicillin; Z88.6 Allergy status to analgesic agent; Z88.8 Allergy status to other drugs, medicaments and biological substances
CPT/HCPCS: 71045-TC